=== PATIENT | female | born 1965 | race Caucasian/White ===

== ENCOUNTER → 2021-06-24 | Outpatient (CLI) | payer OTHER ==
--- NOTE | 2021-06-24 14:14 | CT ---
EXAMINATION TYPE: CT abdomen w con DATE OF EXAM: 06/24/2021 COMPARISON: None available HISTORY: Liver disease, lesions. CT DLP: 1191 mGycm Automated exposure control for dose reduction was used. TECHNIQUE: Helical acquisition of images was performed from the lung bases through the top of iliac crest to include entire abdomen. CONTRAST: Performed with Oral Contrast and with IV Contrast, patient injected with 100 mL of Isovue M300. FINDINGS: LUNG BASES: No significant abnormality is appreciated. LIVER/GB: Scattered hepatic cysts, at least 7, measuring up to 3.4 cm in the right hepatic dome. No o bvious suspicious feature or definite enhancement. Diffuse hypodense hepatic parenchyma highly sugges tive of the moderate to severe hepatic steatosis. No other definite hepatic focal lesion with the maynard itation of the hepatic steatosis. Patent portal vein and hepatic veins. Previous cholecystectomy. PANCREAS: 4 mm hypodensity seen in the pancreatic head which could represent a tiny cyst, too small t o characterize, otherwise unremarkable pancreas. SPLEEN: No significant abnormality is seen. ADRENALS: No significant abnormality is seen. KIDNEYS: Slightly smaller right kidney with irregular outline. Tiny cyst is seen at the lower pole of the left kidney. Unremarkable kidneys otherwise. BOWEL: Small sliding hiatal hernia, otherwise unremarkable stomach, duodenum and visualized small zena wel. Moderate fecal loading of the visualized portion of the colon. Slight wall thickening of the mid portion of the ascending colon, please correlate with coloscopy results. LYMPH NODES: No abdominal lymphadenopathy. OSSEOUS STRUCTURES: Degenerative changes of the lower thoracic and lower lumbar spine. FREE AIR: No free air is visualized. OTHER: Scattered arterial atherosclerotic calcifications. No abdominal ascites. IMPRESSION: Markedly hypodense hepatic parenchyma highly suggestive of moderate to severe severe hepatic steatosi s, please correlate with liver function tests. Scattered hepatic cysts as described above. No other d efinite liver lesion identified with the limitation of the hepatic steatosis. Please note that hepatic fatty infiltration reduces the sensitivity of CT scan for proper characteriz ation of hepatic focal lesions. Other incidental findings as described above.
== END | disposition home or self-care (01) ==
LOC: RADCTMAIN 12:51
PROVIDERS: ATTEND Obstetrics & Gynecology
DX: K76.89 Other specified diseases of liver (principal)
CPT/HCPCS: 74160; Q9967 ×2

== ENCOUNTER 2023-09-25 17:32 | Inpatient (IN) | payer OTHER ==
[2023-09-25] MEDS: HEPARIN SOD,PORK IN 0.45% NACL 25,000 UNIT in 0.45% NACL 1 250ML.BAG IV SCH (18:12)
[2023-09-25 18:14] LABS: Basophils # (A) 0.2 k/uL (0-0.2); Basophils % (A) 2 %; Eosinophils # (A) 0.3 k/uL (0-0.7); Eosinophils % (A) 3 %; HCT 43.2 % (34.0-46.0); HGB 14.4 gm/dL (11.4-16.0); Lymphocytes # (A) 4.5 k/uL (1.0-4.8); Lymphocytes % (A) 45 %; MCH 31.5 pg (25.0-35.0); MCHC 33.3 g/dL (31.0-37.0); MCV 94.5 fL (80.0-100.0); Mean Platelet Volume 7.4; Monocytes # (A) 0.5 k/uL (0-1.0); Monocytes % (A) 5 %; Neutrophils # (A) 4.3 k/uL (1.3-7.7); Neutrophils % (A) 44 %; Platelet Count 220 k/uL (150-450); RBC 4.56 m/uL (3.80-5.40); RDW 13.7 % (11.5-15.5); WBC 9.9 k/uL (3.8-10.6)
--- NOTE | 2023-09-25 18:17 | ED ---
General Adult HPI - General Chief complaint: Chest Pain Stated complaint: Chest Pain Time Seen by Provider: 09/25/23 17:37 Source: patient, EMS, RN notes reviewed, old records reviewed Mode of arrival: EMS Limitations: no limitations - History of Present Illness Initial comments: Patient is a 57-year-old female who presents emergency department as a transfer from [facility] as a non-STEMI. Patient is a history of hypertension, COPD, kidney stones, who scented to the emergency department at the other facility complaining of chest pain. Had an episode of chest heaviness last night prior to going to bed and awoke with continued chest pain this morning. States that the end of her developed into worsening left-sided chest pressure and had some radiation to the left shoulder as well as left jaw at that time. Patient presented for further evaluation. States she felt a little nauseous with that as well. No sweating. No shortness of breath. Currently is chest pain-free at this time but was found to be a non-STEMI at the outside facility with elevated troponin and no EKG changes. Remainder the workup unremarkable except for some hypertension at the outside facility which was treated with clonidine as well as anxiety which was treated with Ativan. Patient states the Ativan seemed to help the most with her chest pain. Presents for further evaluation at this time. - Related Data Home Medications Medication Instructions Recorded Confirmed Cholecalciferol [Vitamin D3 (25 25 mcg PO DAILY 09/25/23 09/25/23 Mcg = 1000 Iu)] Fluticasone Nasal [place] [Flonase 1 spray EA NOSTRIL DAILY 09/25/23 09/25/23 Nasal [place]] Gabapentin [Neurontin] 400 mg PO TID 09/25/23 09/25/23 Ketoconazole 2% Cream [Nizoral 2%] 1 applic TOPICAL DAILY 09/25/23 09/25/23 Ketoconazole 2% Shampoo [Nizoral] 1 applic TOPICAL Q3D 09/25/23 09/25/23 Lidex 0.05% Solution 1 applic TOPICAL BID 09/25/23 09/25/23 Omeprazole 20 mg PO DAILY 09/25/23 09/25/23 Pregabalin [Lyrica] 50 mg PO HS 09/25/23 09/25/23 Propranolol [Inderal] 20 mg PO TID 09/25/23 09/25/23 allopurinoL [Zyloprim] 300 mg PO DAILY 09/25/23 09/25/23 hydrOXYzine pamoate [Vistaril] 50 mg PO TID 09/25/23 09/25/23 Allergies Allergy/AdvReac Type Severity Reaction Status Date / Time tramadol AdvReac Nausea & Verified 09/25/23 18:18 Vomiting Review of Systems ROS Statement: Those systems with pertinent positive or pertinent negative responses have been documented in the HPI. Review of Systems: CONST: Denies fever EYES: Denies blurry vision ENT: Denies nasal congestion C/V: Denies Chest pain RESP: Denies shortness of breath GI: Denies abdominal pain : Denies dysuria SKIN: Denies rash. MSK: Denies joint pain. NEURO: Denies headache ROS Other: All systems not noted in ROS Statement are negative. General Exam - General Exam Comments Initial Comments: General: Appears in no acute distress. HEAD: Normal with no signs of head trauma. EYES: PERRLA, EOMI, conjunctiva normal, no discharge. ENT: Hearing grossly intact, normal oropharynx. RESPIRATORY: Clear breath sounds bilaterally. No wheezes, rales, or rhonchi. C/V: Regular rate and rhythm. S1 and S2 auscultated, no edema, peripheral pulses 2+ and intact throughout ABD: Abd is soft, nontender, nondistended EXT: Normal range of motion, no obvious deformity SKIN: No rashes or lesions observed on exposed skin. NEURO: Alert and oriented x 4. Limitations: no limitations Course Vital Signs 09/25/23 09/25/23 09/25/23 17:41 19:30 21:00 Temperature Pulse Rate 72 78 74 Respiratory 18 18 18 Rate Blood Pressure 128/88 134/79 134/94 O2 Sat by Pulse 94 L 96 97 Oximetry 09/25/23 21:52 Temperature 97.8 F Pulse Rate 71 Respiratory 16 Rate Blood Pressure 125/72 O2 Sat by Pulse 92 L Oximetry Medical Decision Making - Medical Decision Making Was pt. sent in by a medical professional or institution (, PA, BLANKET [employer]DER, urgent care, hospital, or fci...) When possible be specific @ -Transferred from [facility] for evaluation by cardiology for a non-STEMI Did you speak to anyone other than the patient for history (EMS, parent, family, police, friend...)? What history was obtained from this source @ -No Did you review nursing and triage notes (agree or disagree)? Why? @ -I reviewed and agree with nursing and triage notes Were old charts reviewed (outside hosp., previous admission, EMS record, old EKG, old radiological studies, urgent care reports/EKG's, fci records)? Report findings @ -Old charts reviewed from [facility] which is the transferring facility including EKG which revealed no evidence of ischemic changes as well as laboratory studies which showed the mildly elevated High-sensitivity troponin. CT angiogram at the outside facility also found to be showing no evidence of acute PE or other cardiopulmonary process. Differential Diagnosis (chest pain, altered mental status, abdominal pain women, abdominal pain men, vaginal bleeding, weakness, fever, dyspnea, syncope, headache, dizziness, GI bleed, back pain, seizure, CVA, palpatations, mental health, musculoskeletal)? @ -Differential Chest Pain: Stable Angina, Unstable Angina, STEMI, NSTEMI Aortic Dissection, Pneumothorax, Musculoskeletal, Esophageal Spasm GERD, Cholecystitis, Pancreatitis, Zoster, this is not meant to be an all-inclusive list. EKG interpreted by me (3pts min.). @ -As above X-rays interpreted by me (1pt min.). @ -None done CT interpreted by me (1pt min.). @ -None done U/S interpreted by me (1pt. min.). @ -None done What testing was considered but not performed or refused? (CT, X-rays, U/S, labs)? Why? @ -Considered imaging however patient already received imaging at the outside facility including CT PE which was unremarkable. What meds were considered but not given or refused? Why? @ -Considered aspirin however patient already has received a total of 324 milligrams of aspirin today. Did you discuss the management of the patient with other professionals (professionals i.e. , PA, BLANKET F[employer]DER, lab, RT, psych nurse, addiction social worker, college coach, teacher, transportation security officer, rn case manager hospice)? Give summary @ -Discussed with the admitting physician, Dr. Merino who accepted the admission. Was smoking cessation discussed for >3mins.? @ -No Was critical care preformed (if so, how long)? @ -No Were there social determinants of health that impacted care today? How? (Homelessness, low income, unemployed, alcoholism, drug addiction, transportation, low edu. Level, literacy, decrease access to med. care, intermediate, rehab)? @ -No Was there de-escalation of care discussed even if they declined (Discuss DNR or withdrawal of care, Hospice)? DNR status @ -No What co-morbidities impacted this encounter? (DM, HTN, Smoking, COPD, CAD, Cancer, CVA, ARF, Chemo, Hep., AIDS, mental health diagnosis, sleep apnea, morbid obesity)? @ -Tobacco use, hypertension Was patient admitted / discharged? Hospital course, mention meds given and route, prescriptions, significant lab abnormalities, going to OR and other pertinent info. @ -Patient presents with typical sounding chest pain that is since resolved but found to have a non-STEMI based on workup at an outside emergency department at [place]. We will repeat labs. We will continue heparin drip as well as IV fluids. Echo will be ordered. Repeat EKG was obtained and showed no evidence of acute ST segment elevation. Patient does have some very mild depressions in V3 and V4. Patient is currently pain-free. She states the Ativan seemed to help with her discomfort earlier the most I did reorder this for her as well as a nicotine patch. She will be admitted to the hospital as a non-STEMI for cardiology evaluation. She was in agreement this plan. Vital signs within acceptable limits. I spoke with Dr. Merino of [facility] who accepted the admission. Troponin returned elevated at 0.155. Remainder the labs unremarkable. We are continuing heparin therapy. EKG showed no signs of acute ischemia. Patient expressed understanding. She remains asymptomatic at time of admission. Undiagnosed new problem with uncertain prognosis? @ -No Drug Therapy requiring intensive monitoring for toxicity (Heparin, Nitro, Insulin, Cardizem)? @ -Heparin Were any procedures done? @ -No Diagnosis/symptom? @ -NSTEMI Acute, or Chronic, or Acute on Chronic? @ -Acute Uncomplicated (without systemic symptoms) or Complicated (systemic symptoms)? @ -Complicated Side effects of treatment? @ -No Exacerbation, Progression, or Severe Exacerbation? @ -No Poses a threat to life or bodily function? How? (Chest pain, [place], MA, pneumonia, PE, COPD, DKA, ARF, appy, cholecystitis, CVA, Diverticulitis, Homicidal, Suicidal, threat to staff... and all critical care pts) @ -Yes - Lab Data Result diagrams: 09/25/23 17:59 09/25/23 17:59 Lab Results 09/25/23 09/25/23 09/25/23 Range/Units 17:59 17:59 17:59 WBC 9.9 (3.8-10.6) k/uL RBC 4.56 (3.80-5.40) m/uL Hgb 14.4 (11.4-16.0) gm/dL Hct 43.2 (34.0-46.0) % MCV 94.5 (80.0-100.0) fL MCH 31.5 (25.0-35.0) pg MCHC 33.3 (31.0-37.0) g/dL RDW 13.7 (11.5-15.5) % Plt Count 220 (150-450) k/uL MPV 7.4 Neutrophils % 44 % Lymphocytes % 45 % Monocytes % 5 % Eosinophils % 3 % Basophils % 2 % Neutrophils # 4.3 (1.3-7.7) k/uL Lymphocytes # 4.5 (1.0-4.8) k/uL Monocytes # 0.5 (0-1.0) k/uL Eosinophils # 0.3 (0-0.7) k/uL Basophils # 0.2 (0-0.2) k/uL PT 10.6 (10.0-12.5) sec INR 1.0 (<1.2) APTT 69.5 H (22.0-30.0) sec Sodium 139 (137-145) mmol/L Potassium 3.9 (3.5-5.1) mmol/L Chloride 108 H (98-107) mmol/L Carbon Dioxide 25 (22-30) mmol/L Anion Gap 6 mmol/L BUN 14 (7-17) mg/dL Creatinine 0.71 (0.52-1.04) mg/dL Est GFR (CKD-EPI)AfAm >90 (>60 ml/min/1.73 sqM) Est GFR (CKD-EPI)NonAf >90 (>60 ml/min/1.73 sqM) Glucose 102 H (74-99) mg/dL Calcium 8.8 (8.4-10.2) mg/dL Magnesium 1.7 (1.6-2.3) mg/dL Total Bilirubin 0.5 (0.2-1.3) mg/dL AST 20 (14-36) U/L ALT 15 (4-34) U/L Alkaline Phosphatase 71 (38-126) U/L Troponin I (0.000-0.034) ng/mL Total Protein 6.4 (6.3-8.2) g/dL Albumin 3.9 (3.5-5.0) g/dL 09/25/23 Range/Units 17:59 WBC (3.8-10.6) k/uL RBC (3.80-5.40) m/uL Hgb (11.4-16.0) gm/dL Hct (34.0-46.0) % MCV (80.0-100.0) fL MCH (25.0-35.0) pg MCHC (31.0-37.0) g/dL RDW (11.5-15.5) % Plt Count (150-450) k/uL MPV Neutrophils % % Lymphocytes % % Monocytes % % Eosinophils % % Basophils % % Neutrophils # (1.3-7.7) k/uL Lymphocytes # (1.0-4.8) k/uL Monocytes # (0-1.0) k/uL Eosinophils # (0-0.7) k/uL Basophils # (0-0.2) k/uL PT (10.0-12.5) sec INR (<1.2) APTT (22.0-30.0) sec Sodium (137-145) mmol/L Potassium (3.5-5.1) mmol/L Chloride (98-107) mmol/L Carbon Dioxide (22-30) mmol/L Anion Gap mmol/L BUN (7-17) mg/dL Creatinine (0.52-1.04) mg/dL Est GFR (CKD-EPI)AfAm (>60 ml/min/1.73 sqM) Est GFR (CKD-EPI)NonAf (>60 ml/min/1.73 sqM) Glucose (74-99) mg/dL Calcium (8.4-10.2) mg/dL Magnesium (1.6-2.3) mg/dL Total Bilirubin (0.2-1.3) mg/dL AST (14-36) U/L ALT (4-34) U/L Alkaline Phosphatase (38-126) U/L Troponin I 0.155 H* (0.000-0.034) ng/mL Total Protein (6.3-8.2) g/dL Albumin (3.5-5.0) g/dL - EKG Data -: EKG Interpreted by Me EKG Comments: 12-lead Electrocardiogram Interpretation Note EKG was reviewed and interpreted by myself. 12-lead ECG performed at 1751 is interpreted by me as revealing normal sinus rhythm at a rate of 70 beats per minute. [place] is normal. Parables 157 ms, QRS duration is 91 ms, QTc is [address] segment depression in V3 and V4 less than 1 box. No evidence of ST segment elevation. No reciprocal changes.. R wave progression across the precordium was satisfactory.. Disposition Clinical Impression: NSTEMI (non-ST elevated myocardial infarction) Disposition: ADMITTED IP TO THIS [facility] Condition: Stable Time of Disposition: 18:22
[2023-09-25] MEDS ORDERED: NALOXONE 0.4 MG/ML 1 ML VIAL IV PRN (18:19)
[2023-09-25] MEDS ORDERED: ACETAMINOPHEN TAB 325 MG TAB PO PRN (18:19)
[2023-09-25] MEDS ORDERED: ONDANSETRON 4 MG/2 ML VIAL IVP PRN (18:19)
[2023-09-25] MEDS: SODIUM CHLORIDE 0.9% 1,000 ML IV STA (18:19)
[2023-09-25 18:23] LABS: ALT 15 U/L (4-34); AST 20 U/L (14-36); African American GFR (CKD) >90 (>60 ml/min/1.73 sqM); Albumin 3.9 g/dL (3.5-5.0); Alkaline Phosphatase 71 U/L (38-126); Anion Gap 6 mmol/L; Blood Urea Nitrogen 14 mg/dL (7-17); Calcium 8.8 mg/dL (8.4-10.2); Carbon Dioxide 25 mmol/L (22-30); Chloride 108 mmol/L (98-107); Glucose 102 mg/dL (74-99); Magnesium 1.7 mg/dL (1.6-2.3); Non-African American GFR(CKD) >90 (>60 ml/min/1.73 sqM); Potassium 3.9 mmol/L (3.5-5.1); Sodium 139 mmol/L (137-145); Total Bilirubin 0.5 mg/dL (0.2-1.3); Total Protein 6.4 g/dL (6.3-8.2)
[2023-09-25] MEDS: NICOTINE 7MG/24HR PATCH TRANSDERM STA (18:34)
[2023-09-25] MEDS: ACETAMINOPHEN TAB 500 MG TAB PO STA (18:34)
[2023-09-25] MEDS: MORPHINE SULFATE 2 MG/ML SYRINGE IVP STA (18:34)
[2023-09-25 18:55] LABS: Partial Thromboplastin Time 69.5 sec (22.0-30.0); Prothrombin Time 10.6 sec (10.0-12.5)
[2023-09-26] MEDS ORDERED: NITROGLYCERIN SL TABS 0.4 MG TAB SUBLINGUAL PRN ×2 (00:02→13:28)
[2023-09-26] MEDS ORDERED: IPRATROPIUM-ALBUTEROL 3 ML NEB INHALATION PRN (00:10)
--- NOTE | 2023-09-26 00:10 | P.HPIM ---
History of Present Illness H&P Date: 09/25/23 Chief Complaint: Chest pain 57-year-old female with hypertension, COPD Patient coming in for evaluation of chest pain that woke her up from nap she denies any cardiac history she describes the pain as left-sided chest pain radiating across her chest felt like pressure with some areas of stabbing rating the pain was associated with some difficulty breathing and sweating palpitations and dizziness denies any nausea or vomiting. She denies any history of exertional related dyspnea or chest pain denies any cardiac history or cardiac workup in the past. She does admit to smoking and reports having some mild case of COPD. She also reports a recent history of upper respiratory viral illness about 3 weeks ago. Due to the recurrent episodes of chest pain that she exper ienced today she decided to come into the hospital for evaluation she took some aspirin at home which did not help with the pain. Patient denies any recent travel hospital stay denies any history of blood clots or active cancer. At this time she still reports some chest pain and asking for some medications to help with that She admits to tobacco smoking denies any illicit drugs or heavy alcohol Patient denies any fevers chills nausea vomiting coughing denies any wheezing denies any leg edema abdominal pain changes in bowel or urinary habits review of systems Pertinent positives as noted in HPI. All other systems were reviewed and are negative on exam Constitutional: No acute distress, conversant, pleasant Eyes: Anicteric sclerae, moist conjunctiva, Pupils equal round reactive to light ENMT: NC/AT Oropharynx clear, no erythema, or exudates Neck: Supple, no masses, or JVD No carotid bruits No thyromegaly Lungs: Clear to auscultation Clear to percussion Normal respiratory effort, no accessory muscle use Cardiovascular: Heart regular in rate and rhythm, No murmurs, gallops, or rubs No peripheral edema Abdominal: Soft Nontender, no guarding, rebound or rigidity Abdomen moving with respiration Normoactive bowel sounds Extremities: No digital cyanosis No clubbing Pedal pulses intact and symmetrical Radial pulses intact and symmetrical No calf tenderness Psychiatric: Alert and oriented to person, place and time Appropriate affect fair judgement Neuro Muscles Strength 5/5 in all 4 extremities Sensation to light touch grossly present throughout Cranial nerves II-XII grossly intact Medications and Allergies Home Medications Medication Instructions Recorded Confirmed Type Cholecalciferol [Vitamin D3 (25 25 mcg PO DAILY 09/25/23 09/25/23 History Mcg = 1000 Iu)] Fluticasone Nasal [place] [Flonase 1 spray EA NOSTRIL DAILY 09/25/23 09/25/23 History Nasal [place]] Gabapentin [Neurontin] 400 mg PO TID 09/25/23 09/25/23 History Ketoconazole 2% Cream [Nizoral 2%] 1 applic TOPICAL DAILY 09/25/23 09/25/23 History Ketoconazole 2% Shampoo [Nizoral] 1 applic TOPICAL Q3D 09/25/23 09/25/23 History Lidex 0.05% Solution 1 applic TOPICAL BID 09/25/23 09/25/23 History Omeprazole 20 mg PO DAILY 09/25/23 09/25/23 History Pregabalin [Lyrica] 50 mg PO HS 09/25/23 09/25/23 History Propranolol [Inderal] 20 mg PO TID 09/25/23 09/25/23 History allopurinoL [Zyloprim] 300 mg PO DAILY 09/25/23 09/25/23 History hydrOXYzine pamoate [Vistaril] 50 mg PO TID 09/25/23 09/25/23 History Allergies Allergy/AdvReac Type Severity Reaction Status Date / Time tramadol AdvReac Nausea & Verified 09/25/23 18:18 Vomiting Physical Exam Vitals: Vital Signs Temp Pulse Resp BP Pulse Ox 09/25/23 21:52 97.8 F 71 16 125/72 92 L 09/25/23 21:00 74 18 134/94 97 09/25/23 19:30 78 18 134/79 96 09/25/23 17:41 72 18 128/88 94 L Intake and Output 09/25/23 09/25/23 09/26/23 14:59 22:59 06:59 Other: Weight 77.111 kg Results CBC & Chem 7: 09/25/23 17:59 09/25/23 17:59 Labs: Abnormal Lab Results - Last 24 Hours (Table) 09/25/23 09/25/23 09/25/23 Range/Units 17:59 17:59 17:59 APTT 69.5 H (22.0-30.0) sec Chloride 108 H (98-107) mmol/L Glucose 102 H (74-99) mg/dL Troponin I 0.155 H* (0.000-0.034) ng/mL 09/25/23 Range/Units 20:55 APTT (22.0-30.0) sec Chloride (98-107) mmol/L Glucose (74-99) mg/dL Troponin I 0.199 H* (0.000-0.034) ng/mL Assessment and Plan Assessment: 57-year-old female with hypertension COPD coming in for sudden onset chest pain I discussed case with ED doctor and accepted the admission for NSTEMI with anticipated length of stay more than 2 midnights NSTEMI Troponin elevated continue to trend 0.15 --> 0.[address] changes Nitro as needed for chest pain Heparin drip per ACS protocol Cardiology consult Morphine 2 mg as needed for pain Aspirin 81 mg daily p.o. and atorvastatin 40 mg p.o. daily Check lipid panel Check echocardiogram IV fluid hydration normal saline 75 cc/h EKG no acute ST changes Anxiety Continue with propranolol 20 mg 3 times daily History of mild COPD DuoNeb as needed as needed Patient encouraged to quit smoking Blood work overall unremarkable showing white count of 9.9 hemoglobin 14.4 Sodium 139 potassium 3.9 BUN 14 creatinine 0.7 Full code DVT prophylaxis on heparin drip per ACS protocol
[2023-09-26] MEDS: MORPHINE SULFATE 2 MG/ML SYRINGE IVP PRN (01:08)
[2023-09-26] MEDS: LORazepam 1 MG TAB PO PRN (01:08)
[2023-09-26] MEDS: HEPARIN SODIUM 1,000 UN/ML (10ML VL) IV PRN (05:01)
[2023-09-26] MEDS: PROPRANOLOL 20 MG TAB PO SCH (08:12)
[2023-09-26] MEDS: PANTOPRAZOLE 40 MG TABLET PO SCH (08:13)
[2023-09-26] MEDS: ATORVASTATIN 40 MG TAB PO SCH (08:13)
[2023-09-26] MEDS: ASPIRIN 81 MG PO SCH (08:13)
[2023-09-26] MEDS: allopurinoL 300 MG TAB PO SCH (08:13)
[2023-09-26] MEDS: FLUTICASONE 50MCG/SPRAY NASAL 16GM EA NOSTRIL SCH (08:13)
[2023-09-26] MEDS: GABAPENTIN 400 MG CAP PO SCH (08:13)
[2023-09-26 10:27] LABS: Basophils # (A) 0.1 k/uL (0-0.2); Basophils % (A) 1 %; Eosinophils # (A) 0.2 k/uL (0-0.7); Eosinophils % (A) 2 %; HCT 43.6 % (34.0-46.0); HGB 14.3 gm/dL (11.4-16.0); Lymphocytes # (A) 3.9 k/uL (1.0-4.8); Lymphocytes % (A) 48 %; MCH 31.2 pg (25.0-35.0); MCHC 32.8 g/dL (31.0-37.0); MCV 95.3 fL (80.0-100.0); Mean Platelet Volume 8.1; Monocytes # (A) 0.4 k/uL (0-1.0); Monocytes % (A) 4 %; Neutrophils # (A) 3.5 k/uL (1.3-7.7); Neutrophils % (A) 42 %; Platelet Count 196 k/uL (150-450); RBC 4.58 m/uL (3.80-5.40); RDW 14.1 % (11.5-15.5); WBC 8.2 k/uL (3.8-10.6)
--- NOTE | 2023-09-26 10:38 | P.CRDCN ---
History of Present Illness Consult date: 09/26/23 Chief complaint: chest pain History of present illness: The patient is a pleasant 57-year-old female patient with a past medical history significant for diabetes and hypertension and dyslipidemia and overweight and smoking. She presented to the hospital complaining of chest discomfort. She was doing some yard work at home and subsequently she started experiencing discomfort in the middle of the chest as a pressure on the chest with radiation to her neck. No dizziness or lightheadedness and no presyncope or syncope and no sweating. She decided to come to the hospital where she initially presented to [facility] and underwent a blood work including troponin came in to be abnormal and subsequently she was transferred to [facility]. The troponin is consistent with acute coronary syndrome but the EKG showed sinus m echanism with nonspecific ST or T wave abnormalities. No history of coronary artery disease or congestive heart failure or cardiac arrhythmia and never seen a brasswind instrument repairer before. The rest of the blood work came in to be overall unremarkable. Currently she is chest pain-free but she is on heparin IV and she is on aspirin and beta-ana as well and statin. The examination is remarkable for stable vital signs with regular rate and rhythm and clear breathing sounds bilaterally and no edema was noted in the lower extremities Assessment Acute non-ST ovation myocardial infarction Multiple comorbid conditions including smoking and diabetes and hypertension and dyslipidemia Significant family history of cardiovascular disease Plan Continue the current medical regimen Proceed with coronary angiogram Obtain an echocardiogram with Doppler Nicotine patches Smoking cessation was discussed with her Medications and Allergies Home Medications Medication Instructions Recorded Confirmed Type Cholecalciferol [Vitamin D3 (25 25 mcg PO DAILY 09/25/23 09/25/23 History Mcg = 1000 Iu)] Fluticasone Nasal [place] [Flonase 1 spray EA NOSTRIL DAILY 09/25/23 09/25/23 History Nasal [place]] Gabapentin [Neurontin] 400 mg PO TID 09/25/23 09/25/23 History Ketoconazole 2% Cream [Nizoral 2%] 1 applic TOPICAL DAILY 09/25/23 09/25/23 History Ketoconazole 2% Shampoo [Nizoral] 1 applic TOPICAL Q3D 09/25/23 09/25/23 History Lidex 0.05% Solution 1 applic TOPICAL BID 09/25/23 09/25/23 History Omeprazole 20 mg PO DAILY 09/25/23 09/25/23 History Pregabalin [Lyrica] 50 mg PO HS 09/25/23 09/25/23 History Propranolol [Inderal] 20 mg PO TID 09/25/23 09/25/23 History allopurinoL [Zyloprim] 300 mg PO DAILY 09/25/23 09/25/23 History hydrOXYzine pamoate [Vistaril] 50 mg PO TID 09/25/23 09/25/23 History Allergies Allergy/AdvReac Type Severity Reaction Status Date / Time tramadol AdvReac Nausea & Verified 09/25/23 18:18 Vomiting Physical Exam Vitals: Vital Signs Temp Pulse Pulse Resp BP BP Pulse Ox 09/26/23 08:00 97.8 F 81 16 123/76 91 L 09/26/23 06:23 84 18 143/90 96 09/26/23 01:13 71 18 122/85 95 09/25/23 21:52 97.8 F 71 16 125/72 92 L 09/25/23 21:00 74 18 134/94 97 09/25/23 19:30 78 18 134/79 96 09/25/23 17:41 72 18 128/88 94 L Intake and Output 09/25/23 09/26/23 09/26/23 22:59 06:59 14:59 Intake Total 98.236 64.582 Balance 98.236 64.582 Intake: Intake, IV Titration 98.236 64.582 Amount Heparin Sod,Pork in 0.45% 98.236 64.582 NaCl 25,000 unit In 0.45 % NaCl 1 250ml.bag @ 12 UNITS/KG/HR 9.253 mls/hr IV .Q24H [facility] Rx#: [id number] Other: Weight 77.111 kg Results 09/26/23 09:57 09/25/23 17:59 Cardiac Enzymes 09/25/23 09/25/23 09/25/23 Range/Units 17:59 17:59 20:55 AST 20 (14-36) U/L Troponin I 0.155 H* 0.199 H* (0.000-0.034) ng/mL 09/26/23 Range/Units 01:30 AST (14-36) U/L Troponin I 0.205 H* (0.000-0.034) ng/mL Coagulation 0609/26/23 09/26/23 Range/Units 17:59 01:30 09:56 PT 10.6 (10.0-12.5) sec APTT 69.5 H 32.2 H 79.6 H (22.0-30.0) sec CBC 09/25/23 09/26/23 Range/Units 17:59 09:57 WBC 9.9 8.2 (3.8-10.6) k/uL RBC 4.56 4.58 (3.80-5.40) m/uL Hgb 14.4 14.3 (11.4-16.0) gm/dL Hct 43.2 43.6 (34.0-46.0) % Plt Count 220 196 (150-450) k/uL Comprehensive Metabolic Panel 09/25/23 Range/Units 17:59 Sodium 139 (137-145) mmol/L Potassium 3.9 (3.5-5.1) mmol/L Chloride 108 H (98-107) mmol/L Carbon Dioxide 25 (22-30) mmol/L BUN 14 (7-17) mg/dL Creatinine 0.71 (0.52-1.04) mg/dL Glucose 102 H (74-99) mg/dL Calcium 8.8 (8.4-10.2) mg/dL AST 20 (14-36) U/L ALT 15 (4-34) U/L Alkaline Phosphatase 71 (38-126) U/L Total Protein 6.4 (6.3-8.2) g/dL Albumin 3.9 (3.5-5.0) g/dL Current Medications Generic Name Dose Route Start Last Admin Trade Name Freq PRN Reason Stop Dose Admin Acetaminophen 650 mg 09/25/23 18:19 Acetaminophen Tab 325 Mg Tab PO Q6HR PRN Mild Pain or Fever > 100.5 Albuterol/Ipratropium 3 ml 09/26/23 00:10 Ipratropium-Albuterol 3 Ml Neb INHALATION RT-QID PRN Shortness Of Breath Or Wheezing Allopurinol 300 mg 09/26/23 09:00 09/26/23 08:13 Allopurinol 300 Mg Tab PO 300 mg DAILY CHRIS Administration Aspirin 81 mg 09/26/23 09:00 09/26/23 08:13 Aspirin 81 Mg PO 81 mg DAILY CHRIS Administration Atorvastatin Calcium 40 mg 09/26/23 09:00 09/26/23 08:13 Atorvastatin 40 Mg Tab PO 40 mg DAILY CHRIS Administration Fluticasone Propionate 1 spray 09/26/23 09:00 09/26/23 08:13 Fluticasone 50mcg/[place] Nasal 16gm EA NOSTRIL 1 spray DAILY CHRIS Administration Gabapentin 400 mg 09/26/23 09:00 09/26/23 08:13 Gabapentin 400 Mg Cap PO 400 mg TID CHRIS Administration Heparin Sodium (Porcine) 0 unit 09/26/23 04:59 09/26/23 05:01 Heparin Sodium 1,000 Un/Ml (10ml Vl) IV 3,850 unit PER PROTOCOL PRN Administration Low PTT Protocol Heparin Sodium/Sodium Chloride 250 mls @ 9.253 mls/hr 09/25/23 18:00 09/26/23 10:24 25,000 unit/ Sodium Chloride IV 13 units/kg/hr .Q24H CHRIS 10.024 mls/hr Titration Protocol 12 UNITS/KG/HR Lorazepam 1 mg 09/25/23 17:53 09/26/23 08:17 Lorazepam 1 Mg Tab PO 1 mg Q8HR PRN Administration Anxiety Morphine Sulfate 2 mg 09/26/23 00:02 09/26/23 10:26 Morphine Sulfate 2 Mg/Ml Syringe IVP 2 mg Q4HR PRN Administration Pain/Discomfort Naloxone HCl 0.2 mg 09/25/23 18:19 Naloxone 0.4 Mg/Ml 1 Ml Vial IV Q2M PRN Opioid Reversal Nitroglycerin 0.4 mg 09/26/23 00:02 Nitroglycerin Sl Tabs 0.4 Mg Tab SUBLINGUAL Q5M PRN Chest Pain Ondansetron HCl 4 mg 09/25/23 18:19 Ondansetron 4 Mg/2 Ml Vial IVP Q8HR PRN Nausea And Vomiting Pantoprazole Sodium 40 mg 09/26/23 07:30 09/26/23 08:13 Pantoprazole 40 Mg Tablet PO 40 mg [id number] CHRIS Administration Pregabalin 50 mg 09/26/23 21:00 Pregabalin 50 Mg Cap PO HS CHRIS Propranolol HCl 20 mg 09/26/23 09:00 09/26/23 08:12 Propranolol 20 Mg Tab PO 20 mg TID CHRIS Administration Intake and Output 09/25/23 09/26/23 09/26/23 22:59 06:59 14:59 Intake Total 98.236 64.582 Balance 98.236 64.582 Intake: Intake, IV Titration 98.236 64.582 Amount Heparin Sod,Pork in 0.45% 98.236 64.582 NaCl 25,000 unit In 0.45 % NaCl 1 250ml.bag @ 12 UNITS/KG/HR 9.253 mls/hr IV .Q24H [facility] Rx#: [id number] Other: Weight 77.111 kg 09/26/23 09:57 09/25/23 17:59
[2023-09-26 11:50] LABS: ALT 15 U/L (4-34); AST 24 U/L (14-36); African American GFR (CKD) >90 (>60 ml/min/1.73 sqM); Albumin 3.7 g/dL (3.5-5.0); Alkaline Phosphatase 81 U/L (38-126); Anion Gap 5 mmol/L; Blood Urea Nitrogen 13 mg/dL (7-17); Calcium 8.9 mg/dL (8.4-10.2); Carbon Dioxide 20 mmol/L (22-30); Chloride 114 mmol/L (98-107); Glucose 136 mg/dL (74-99); Non-African American GFR(CKD) >90 (>60 ml/min/1.73 sqM); Potassium 4.2 mmol/L (3.5-5.1); Sodium 139 mmol/L (137-145); Total Bilirubin 0.4 mg/dL (0.2-1.3); Total Protein 5.9 g/dL (6.3-8.2)
[2023-09-26] MEDS ORDERED: LIDOCAINE 1% INJ 10MG/ML (20 ML MDV) ONE (11:58)
[2023-09-26] MEDS ORDERED: VERAPAMIL 2.5 MG/ML 2 ML AMP ONE (11:59)
[2023-09-26] MEDS: IV FLUID CONTINUATION 950 ML IV ONE (12:13)
--- NOTE | 2023-09-26 12:13 | P.PN ---
Subjective Progress Note Date: 09/26/23 Hospital Course: 57-year-old female with hypertension, COPD presenting from outside hospital af ter developing chest pain. Had elevated troponin. Started on heparin drip. Was transferred for further care. EKG does not show any significant ST-T wave changes. Vital signs within normal limits. Laboratory workup shows unremarkable CBC, BMP shows creatinine 0.71, troponin 0.05. Cardiology co nsulted. Subjective: Seen and examined at bedside. No acute events overnight. Denies any chest pain. Pertinent positives and negatives as discussed above, a complete review of systems was performed and all other systems are negative. Vitals Signs Reviewed. General: Nontoxic, no distress, appears at stated age Derm: Warm, dry Head: Atraumatic, normocephalic, symmetric Eyes: EOMI, no lid lag, anicteric sclera Mouth: No lip lesion, mucus membranes moist Cardiovascular: S1S2 reg, no murmur Lungs: CTA bilateral, no rhonchi, no rales, no accessory muscle use Abdominal: Soft, nontender to palpation, no guarding, no appreciable organomegaly Ext: No gross muscle atrophy, no edema, no contractures Neuro: CN II-XI grossly intact, no focal neuro deficits Psych: Alert, oriented, appropriate affect Data Reviewed Today: Pertinent Labs: WBC 8.2, hemoglobin 14.3, APTT 79.6, bicarb 20, creatinine 0.66 Imaging: No new imaging Assessment and Plan: Acute NSTEMI -Continue heparin drip, monitor APTT, monitor for bleeding -Aspirin 81 mg, atorvastatin 40 mg -Cardiology consulted, pending recommendations -Morphine 2 mg as needed for pain, monitor for sedation -Lipid panel, echocardiogram pending -Continue telemetry Anxiety -Continue with propranolol 20 mg 3 times daily History of mild COPD -DuoNeb as needed as needed Nicotine dependence -Nicotine patch 7 mg daily -Patient encouraged to quit smoking Chronic: Gout Neuropathy GERD DVT ppx: Heparin drip Code status: Full code Anticipated discharge place: Pending clinical course Anticipated discharge time: Pending clinical course Objective - Vital Signs Vital signs: Vital Signs Temp 97.7 F 09/26/23 11:56 Pulse 73 09/26/23 11:56 Resp 15 09/26/23 11:56 BP 112/80 09/26/23 11:56 Pulse Ox 99 09/26/23 11:56 FiO2 Intake & Output 09/25/23 09/26/23 09/26/23 18:59 06:59 18:59 Intake Total 98.236 64.582 Balance 98.236 64.582 Weight 77.111 kg Intake: Intake, IV Titration 98.236 64.582 Amount Heparin Sod,Pork in 0.45% 98.236 64.582 NaCl 25,000 unit In 0.45 % NaCl 1 250ml.bag @ 12 UNITS/KG/HR 9.253 mls/hr IV .Q24H [facility] Rx#: [id number] - Labs CBC & Chem 7: 09/26/23 09:57 09/26/23 09:56 Labs: Abnormal Lab Results - Last 24 Hours (Table) 09/25/23 09/25/23 09/25/23 Range/Units 17:59 17:59 17:59 APTT 69.5 H (22.0-30.0) sec Chloride 108 H (98-107) mmol/L Carbon Dioxide (22-30) mmol/L Glucose 102 H (74-99) mg/dL Troponin I 0.155 H* (0.000-0.034) ng/mL Total Protein (6.3-8.2) g/dL 09/25/23 09/26/23 09/26/23 Range/Units 20:55 01:30 01:30 APTT 32.2 H (22.0-30.0) sec Chloride (98-107) mmol/L Carbon Dioxide (22-30) mmol/L Glucose (74-99) mg/dL Troponin I 0.199 H* 0.205 H* (0.000-0.034) ng/mL Total Protein (6.3-8.2) g/dL 09/26/23 09/26/23 Range/Units 09:56 09:56 APTT 79.6 H (22.0-30.0) sec Chloride 114 H (98-107) mmol/L Carbon Dioxide 20 L (22-30) mmol/L Glucose 136 H (74-99) mg/dL Troponin I (0.000-0.034) ng/mL Total Protein 5.9 L (6.3-8.2) g/dL
[2023-09-26] MEDS ORDERED: fentaNYL (PF) 50 MCG/ML 2 ML AMP ONE (12:23)
[2023-09-26] MEDS ORDERED: HEPARIN SODIUM 1,000 UN/ML (10ML VL) ONE (12:23)
[2023-09-26] MEDS: ASPIRIN 81 MG ONE (12:28)
[2023-09-26] MEDS: MIDAZOLAM 2 MG/2 ML VIAL IVP ONE (12:35)
[2023-09-26] MEDS: fentaNYL (PF) 50 MCG/1 ML VIAL IVP ONE (12:38)
[2023-09-26] MEDS: LIDOCAINE 1% INJ 10MG/ML (20 ML MDV) SQ ONE (12:43)
[2023-09-26] MEDS: VERAPAMIL SYRINGE (5 MG/10 ML) INTRAARTER ONE (12:45)
[2023-09-26] MEDS: TICAGRELOR 90 MG TAB ONE (12:58)
[2023-09-26] MEDS: NITROGLYCERIN 1000MCG/10ML SYRINGE INTRAARTER ONE (13:05)
[2023-09-26] MEDS ORDERED: niCARdipine 25 MG/10 ML VIAL ONE (13:08)
[2023-09-26] MEDS: niCARdipine Syringe (1,000 mcg/10 mL) INTRACORON ONE (13:14)
[2023-09-26] MEDS: IOPAMIDOL-370 100ML BTL INJ ONE (13:15)
[2023-09-26] MEDS ORDERED: MAG HYDROX/AL HYDROX/SIMETH 30 ML CUP PO PRN (13:28)
[2023-09-26] MEDS ORDERED: RX INFO: IV CONTRAST WAS GIVEN 1 EACH MISC MISCELLANE PRN (13:28)
[2023-09-26] MEDS ORDERED: ATROPINE SULFATE 0.1 MG/ML 10ML SYRINGE IV PRN (13:28)
[2023-09-26] MEDS ORDERED: ZOLPIDEM 5 MG TAB PO PRN (13:28)
[2023-09-26] MEDS: MORPHINE SULFATE 4 MG/ML SYRINGE ONE (13:32)
--- NOTE | 2023-09-26 13:36 | P.PCN ---
Date of Procedure: 09/26/23 Operative Findings: CARDIAC CATHETERIZATION AND PERCUTANEOUS CORONARY INTERVENTION PERFORMING PHYSICIAN: Juan Osborne MD, VI PROCEDURE PERFORMED: 1. Selective right and left coronary angiogram 2. Left heart catheterization 3. Successful stenting of distal RCA using 3.5 x 28 mm Xience SOHA with an ex cellent angiographic results with adjunctive use of IVUS 4. Ultrasound-guided access of the right radial artery INDICATION: Acute non-ST ovation myocardial infarction COMPLICATION: None APPROACH: Right radial artery LEVEL OF SEDATION: Moderate with the sedation time off 37 minutes PROCEDURE DESCRIPTION: After obtaining informed consent the patient was brought to the cardiac [employer]. The right radial artery was cannulated using micropuncture technique under ultrasound guidance and micropuncture wire passed easily then I placed a 6 Thai 11 cm sheath at the right radial artery. I gave the patient 2 mg of verapamil intra-arterial and heparin IV was given intermittently with continuous monitoring of the ACT. Subsequently I did selective right and left coronary angiogram using JR4 and JL 3.5 catheters. Left heart catheterization was performed using the JR4 catheter. After that I did intervene on the RCA. Anticoagulation continued using heparin. I did engage using JR4 guiding catheter. I did wired using a run-through wire. Intravascular ultrasound was performed and showed a diameter between 3.0 to 3.5 mm. Predilatation was performed using 2.5 mm balloon before I deployed 3.5 x 28 mm stent where the stent was positioned under fluoroscopy guidance and deployed under 14 anahi. Postdilatation was performed using 4 mm noncompliant balloon after imaging performed and showed that the proximal portion of the stent was not well expanded. An angiogram was performed and showed possible residual thrombus burden involving the distal part of the stent. I postdilated that area again using the 4 mm noncompliant balloon with final angiogram showing excellent angiographic results and the procedure was completed with no complication. SELECTIVE CORONARY ANGIOGRAM: The right coronary artery: Large-caliber vessel and a dominant vessel with critical disease involving the distal portion with a plaque rupture and thrombus formation Left main: Has mild disease only. Bifurcates into an LCx and LAD The left circumflex: Large-caliber vessel nondominant vessel. The LCx has mild disease only. Gives rise into the first and second obtuse marginal branches. OM1 works as a ramus intermedius The left anterior descending artery: The proximal LAD appears to have mild disease only gives rise into a large diagonal branch which bifurcated into 2 subbranches and the diagonal has mild to moderate diffuse disease. The LAD after that in the midportion by the bifurcation of septal egg grader has a lesion appears to be in the range of 60 to 70% and appears to be very focal. The mid to distal LAD has mild disease only. HEMODYNAMICS: The LVEDP was 17 mmHg with no significant gradient across aortic valve CONCLUSION: 1. Critical disease involving the distal RCA with a plaque rupture and thrombus formation. I performed successful PCI of the distal RCA as described above 2. Intermediate to severe disease with a focal lesion involving the mid LAD 3. Mildly elevated left-sided filling pressure POSTPROCEDURE MANAGEMENT: 1. Dual antiplatelet therapy using aspirin and Brilinta for 12 month 2. FFR of the LAD down the line
[2023-09-26] MEDS: SODIUM CHLORIDE 0.9% 1,000 ML in EMPTY BAG 1 BAG IV SCH (14:28)
[2023-09-26] MEDS: NICOTINE 7MG/24HR PATCH TRANSDERM SCH (15:49)
[2023-09-26] MEDS: TICAGRELOR 90 MG TAB PO SCH (20:27)
[2023-09-26] MEDS: PREGABALIN 50 MG CAP PO SCH (20:28)
[2023-09-26] MEDS: ATORVASTATIN 80 MG TAB PO SCH (20:28)
[2023-09-27 09:09] LABS: African American GFR (CKD) >90 (>60 ml/min/1.73 sqM); Anion Gap 6 mmol/L; Blood Urea Nitrogen 12 mg/dL (7-17); Calcium 9.2 mg/dL (8.4-10.2); Carbon Dioxide 23 mmol/L (22-30); Chloride 108 mmol/L (98-107); Glucose 115 mg/dL (74-99); Magnesium 1.7 mg/dL (1.6-2.3); Non-African American GFR(CKD) 85 (>60 ml/min/1.73 sqM); Potassium 4.1 mmol/L (3.5-5.1); Sodium 137 mmol/L (137-145)
[2023-09-27 09:12] LABS: Basophils # (A) 0.1 k/uL (0-0.2); Basophils % (A) 1 %; Eosinophils # (A) 0.2 k/uL (0-0.7); Eosinophils % (A) 2 %; HGB 14.1 gm/dL (11.4-16.0); Lymphocytes # (A) 3.1 k/uL (1.0-4.8); Lymphocytes % (A) 31 %; MCH 31.3 pg (25.0-35.0); MCHC 33.5 g/dL (31.0-37.0); MCV 93.5 fL (80.0-100.0); Mean Platelet Volume 7.7; Monocytes # (A) 0.5 k/uL (0-1.0); Monocytes % (A) 5 %; Neutrophils # (A) 6.1 k/uL (1.3-7.7); Neutrophils % (A) 61 %; Platelet Count 219 k/uL (150-450); RDW 14.1 % (11.5-15.5)
[2023-09-27 10:22] VITALS: BP 127/80; PULSE 83; RESP 17; TEMP 97.8
--- NOTE | 2023-09-27 11:47 | P.PN ---
Subjective HISTORY OF PRESENT ILLNESS: The patient is a pleasant 57-year-old female patient with a past medical history significant for diabetes and hypertension and dyslipidemia and overweight and smoking. She presented to the hospital complaining of chest discomfort. She was doing some yard work at home and subsequently she started experiencing discomfort in the middle of the chest as a pressure on the chest with radiation to her neck. No dizziness or lightheadedness and no presyncope or syncope and no sweating. She decided to come to the hospital where she initially presented to [facility] and underwent a blood work including troponin came in to be abnormal and subsequently she was transferred to [facility]. The troponin is consistent with acute coronary syndrome but the EKG showed sinus mechanism with nonspecific ST or T wave abnormalities. No history of coronary artery disease or congestive heart failure or cardiac arrhythmia and never seen a palliative care coordinator before. The rest of the blood work came in to be overall unremarkable. Currently she is chest pain-free but she is on heparin IV and she is on aspirin and beta-ana as well and statin. The examination is remarkable for stable vital signs with regular rate and rhythm and clear breathing sounds bilaterally and no edema was noted in the lower extremities September 27, 2023 Patient examined this morning at bedside. Patient currently denies any chest pain or pressure. She denies any shortness of breath. She has been up ambulating without difficulty. Vital signs are stable. 2D echo is currently pending. PHYSICAL EXAM: VITAL SIGNS: Reviewed. GENERAL: Well-developed in no acute distress. NECK: Supple. No JVD or thyromegaly LUNGS: Respirations even and unlabored. Lungs essentially clear to auscultation bilaterally. HEART: Regular rate and rhythm. S1 and S2 heard. EXTREMITIES: Normal range of motion. No clubbing or cyanosis. Peripheral pul ses intact. No lower extremity edema ASSESSMENT: Non-STEMI, status post cardiac catheterization revealing critical disease of the distal RCA with a plaque rupture and thrombus formation with successful PCI of distal RCA Intermediate to severe disease with a focal lesion involving the mid LAD, FFR to be performed on an outpatient basis Hypertension Hyperlipidemia Diabetes Nicotine dependence Family history of CAD PLAN: Continue dual antiplatelet therapy with Aspirin and Brilinta for 12 months Continue high intensity statin. LDL goal less than 70 Continue additional cardiac medications Smoking cessation recommended. Nicotine patch prescribed. Patient to be referred to [place] [facility] upon discharge Echo pending. Await results. Anticipate discharge home this afternoon pending echocardiogram results Patient to follow-up postdischarge with Dr. Osborne. Patient will require FFR of the LAD to be performed on an outpatient basis Nurse practitioner note has been reviewed by physician. Signing provider agrees with the documented findings, assessment, and plan of care documented by HONEY PROCESSOR as a scribe. Objective - Vital Signs Vital signs: Vital Signs Temp 97.8 F 09/27/23 08:20 Pulse 83 09/27/23 08:20 Resp 17 09/27/23 08:20 BP 127/80 09/27/23 08:20 Pulse Ox 93 L 09/27/23 08:39 FiO2 Intake & Output 09/26/23 09/27/23 09/27/23 18:59 06:59 18:59 Intake Total 214.582 120 Balance 214.582 120 Weight 77.111 kg Intake: IV 150 Intake, IV Titration 64.582 Amount Heparin Sod,Pork in 0.45% 64.582 NaCl 25,000 unit In 0.45 % NaCl 1 250ml.bag @ 12 UNITS/KG/HR 9.253 mls/hr IV .Q24H [facility] Rx#: [id number] Oral 120 Other: Voiding Method Toilet Toilet # Voids 1 - Labs CBC & Chem 7: 09/27/23 07:51 09/27/23 07:51 Labs: Abnormal Lab Results - Last 24 Hours (Table) 09/26/23 09/27/23 Range/Units 09:56 07:51 Chloride 114 H 108 H (98-107) mmol/L Carbon Dioxide 20 L (22-30) mmol/L Glucose 136 H 115 H (74-99) mg/dL Total Protein 5.9 L (6.3-8.2) g/dL
[2023-09-27 11:48] VITALS: BMI 26.6
--- NOTE | 2023-09-27 12:10 | P.DS ---
Providers Date of admission: 09/25/23 18:19 Expected date of discharge: 09/27/23 Attending physician: Lm Merino MD Consults: 09/25/23 18:19 Consult Physician Routine Consulting Provider: Viktoria Phillips Consult Reason/Comments: nstemi Do you want consulting provider notified?: Yes 09/26/23 13:28 Consult Physician Routine Consulting Provider: Viktoria Phillips Consult Reason/Comments: Post Interventional Patient Do you want consulting provider notified?: Already Contacted Primary care physician: Shoshana [facility] Course: Discharge Diagnosis: Acute NSTEMI status post stent to RCA Intermediate to severe disease with a focal lesion involving the mid LAD Hypertension Dyslipidemia Anxiety History of mild COPD, not in exacerbation Nicotine dependence Hospital Course: 57-year-old female with hypertension, COPD presenting from outside hospital after developing chest pain. Had elevated troponin. Started on heparin drip. Was transferred for further care. EKG does not show any significant ST-T wave changes. Vital signs within normal limits. Laboratory workup shows unremarkable CBC, BMP shows creatinine 0.71, troponin 0.05. Cardiology consulted. Underwent left heart cath which showed critical disease involving distal RCA with plaque rupture and thrombus formation, unsuccessful PCI to distal RCA, intermediate to severe disease with a focal lesion involving the mid LAD. Plan is to do FFR on an outpatient basis. Patient also had an echocardiogram done. No results available. Patient eager to go home. Discussed with cardiology, results for echocardiogram to be reviewed outpatient. Denies any chest pain at the time of discharge. Being discharged on dual antiplatelet therapy along with statin. Follow-up outpatient with both cardiology and PCP. Patient seen and examined at bedside. Vital signs reviewed and stable. General: Nontoxic, no distress, appears at stated age Derm: Warm, dry Head: Atraumatic, normocephalic, symmetric Eyes: EOMI, no lid lag, anicteric sclera Mouth: No lip lesion, mucus membranes moist Cardiovascular: S1S2 reg, no murmur Lungs: CTA bilateral, no rhonchi, no rales, no accessory muscle use Abdominal: Soft, nontender to palpation, no guarding, no appreciable organomegaly Ext: No gross muscle atrophy, no edema, no contractures Neuro: CN II-XI grossly intact, no focal neuro deficits Psych: Alert, oriented, appropriate affect A total of 33 minutes of time were spent preparing this complex discharge summary. Patient was discharged on 09/27/2023 at 12. Patient Condition at Discharge: Stable Plan - Discharge Summary Discharge Rx Participant: No New Discharge Prescriptions: New Aspirin 81 mg PO DAILY #60 tab Atorvastatin [Lipitor] 80 mg PO HS #60 tab Nitroglycerin Sl Tabs [Nitrostat] 0.4 mg SUBLINGUAL Q5M PRN #20 tab PRN Reason: Chest Pain Ticagrelor [Brilinta] 90 mg PO BID #120 tab Continue Gabapentin [Neurontin] 400 mg PO TID Propranolol [Inderal] 20 mg PO TID Ketoconazole 2% Cream [Nizoral 2%] 1 applic TOPICAL DAILY allopurinoL [Zyloprim] 300 mg PO DAILY Ketoconazole 2% Shampoo [Nizoral] 1 applic TOPICAL Q3D Cholecalciferol [Vitamin D3 (25 Mcg = 1000 Iu)] 25 mcg PO DAILY hydrOXYzine pamoate [Vistaril] 50 mg PO TID Pregabalin [Lyrica] 50 mg PO HS Fluticasone Nasal [place] [Flonase Nasal [place]] 1 spray EA NOSTRIL DAILY Omeprazole 20 mg PO DAILY Lidex 0.05% Solution 1 applic TOPICAL BID Discharge Medication List Cholecalciferol [Vitamin D3 (25 Mcg = 1000 Iu)] 25 mcg PO DAILY 09/25/23 [History] Fluticasone Nasal [place] [Flonase Nasal [place]] 1 spray EA NOSTRIL DAILY 09/25/23 [History] Gabapentin [Neurontin] 400 mg PO TID 09/25/23 [History] Ketoconazole 2% Cream [Nizoral 2%] 1 applic TOPICAL DAILY 09/25/23 [History] Ketoconazole 2% Shampoo [Nizoral] 1 applic TOPICAL Q3D 09/25/23 [History] Lidex 0.05% Solution 1 applic TOPICAL BID 09/25/23 [History] Omeprazole 20 mg PO DAILY 09/25/23 [History] Pregabalin [Lyrica] 50 mg PO HS 09/25/23 [History] Propranolol [Inderal] 20 mg PO TID 09/25/23 [History] allopurinoL [Zyloprim] 300 mg PO DAILY 09/25/23 [History] hydrOXYzine pamoate [Vistaril] 50 mg PO TID 09/25/23 [History] Aspirin 81 mg PO DAILY #60 tab 09/27/23 [Rx] Atorvastatin [Lipitor] 80 mg PO HS #60 tab 09/27/23 [Rx] Nitroglycerin Sl Tabs [Nitrostat] 0.4 mg SUBLINGUAL Q5M PRN #20 tab 09/27/23 [Rx] Ticagrelor [Brilinta] 90 mg PO BID #120 tab 09/27/23 [Rx] Follow up Appointment(s)/Referral(s): Shoshana Hicks MD [Primary Care Provider] - 1-2 days Juan Osborne MD [STAFF PHYSICIAN] - 1 Week Patient Instructions/Handouts: *Surgery [facility] - After Heart Catheterization - Auto Machinist Instructions, Heart Attack (DC) Activity/Diet/Wound Care/Special Instructions: Please see your PCP and cardiology. You will need to review the echocardiogram result with your knotter hand. Discharge Disposition: HOME SELF-CARE
--- NOTE | 2023-09-27 15:19 | CA ---
Transthoracic Echo Report Name: Marcy Moser Age: 57 Gender: F : 1965 Exam Date: 09/27/2023 08:20 Exam Location: [facility] Ht (in): 67 Wt (lb): 170 Ordering Physician: Mynor Barry MD Attending/Referring Phys: Community Administrator Deisi Najera RDCS Procedure CPT: Indications: nstemi Cardiac Hx: 1 stent Technical Quality: Good Contrast 1: Total Dose (mL): Contrast 2: Total Dose (mL): MEASUREMENTS (Male / Female) Normal Values 2D ECHO LV Diastolic Diameter PLAX 4.7 cm 4.2 - 5.9 / 3.9 - 5.3 cm LV Systolic Diameter PLAX 2.9 cm IVS Diastolic Thickness 1.0 cm 0.6 - 1.0 / 0.6 - 0.9 cm LVPW Diastolic Thickness 1.0 cm 0.6 - 1.0 / 0.6 - 0.9 cm LV Relative Wall Thickness 0.4 RV Internal Dim ED PLAX 2.8 cm LA Systolic Diameter LX 3.5 cm 3.0 - 4.0 / 2.7 - 3.8 cm LV Diastolic Volume MOD 4C 79.1 cm??? LV Systolic Volume MOD 4C 31.4 cm??? LV Ejection Fraction MOD 4C 60.3 % LV Cardiac Index MOD 4C 1957.4 cm???/min???m??? LV Diastolic Length 4C 7.8 cm LV Systolic Length 4C 6.7 cm LV Diastolic Volume MOD 2C 51.3 cm??? LV Systolic Volume MOD 2C 25.9 cm??? LV Ejection Fraction MOD 2C 49.5 % LV Cardiac Index MOD 2C 1041.1 cm???/min???m??? LV Diastolic Length 2C 7.1 cm LV Systolic Length 2C 6.1 cm LA Volume 45.7 cm??? 18 - 58 / 22 - 52 cm??? LA Volume Index 23.7 cm???/m??? 16 - 28 cm???/m??? M-MODE Aortic Root Diameter MM 3.1 cm AV Cusp Separation MM 1.9 cm DOPPLER AV Peak Velocity 102.9 cm/s AV Peak Gradient 4.2 mmHg MV Area PHT 3.8 cm??? Mitral E Point Velocity 55.1 cm/s Mitral A Point Velocity 65.3 cm/s Mitral E to A Ratio 0.8 MV Deceleration Time 201.4 ms TR Peak Velocity 201.1 cm/s TR Peak Gradient 16.2 mmHg Right Ventricular Systolic Press 21.2 mmHg FINDINGS Left Ventricle Left ventricular ejection fraction is estimated at 55-60 %. Left ventricular cavity size normal. Left ventricular wall thickness normal. No obvious regional wall motion abnormalities. Right Ventricle Normal right ventricular size and function. Right ventricular systolic pressure within normal limits. Right Atrium Normal right atrial size. No right atrial thrombus or mass seen. Left Atrium Normal left atrial size. No left atrial thrombus or mass present. Mitral Valve Structurally normal mitral valve. No mitral stenosis, regurgitation or prolapse. Aortic Valve Trileaflet aortic valve. No aortic valve stenosis or regurgitation. Tricuspid Valve Structurally normal tricuspid valve. Mild tricuspid regurgitation. Pulmonic Valve Structurally normal pulmonic valve. Pericardium No pericardial or pleural effusion. Aorta Normal size aortic root and proximal ascending aorta. CONCLUSIONS Normal LV size and function Previewed by: Dr. Chester Palmer MD (Electronically Signed) Final Date: 27 September 2023 15:18
[2023-09-27 15:54] LABS: Chol/HDL Ratio 5.75 Ratio; LDL Cholesterol,Calculated 96.2 mg/dL (0.0-131.0)
== END 2023-09-27 12:36 | disposition home or self-care (01) | DRG 322 ==
LOC: EC 17:32 → 3SCARD 18:19
PROVIDERS: ADMIT Student in an Organized Health Care Education/Training Program; ATTEND Student in an Organized Health Care Education/Training Program
PROC: 027034Z Dilation of Coronary Artery, One Artery with Drug-eluting Intraluminal Device, Percutaneous Approach (ICD-10-PCS; principal; 2023-09-26 11:54)
PROC: 4A023N7 Measurement of Cardiac Sampling and Pressure, Left Heart, Percutaneous Approach (ICD-10-PCS; 2023-09-26 11:54)
PROC: B2111ZZ Fluoroscopy of Multiple Coronary Arteries using Low Osmolar Contrast (ICD-10-PCS; 2023-09-26 11:54)
DX: I21.4 Non-ST elevation (NSTEMI) myocardial infarction (principal); J44.0 Chronic obstructive pulmonary disease with (acute) lower respiratory infection; E11.40 Type 2 diabetes mellitus with diabetic neuropathy, unspecified; E78.5 Hyperlipidemia, unspecified; F17.200 Nicotine dependence, unspecified, uncomplicated; F41.9 Anxiety disorder, unspecified; I10 Essential (primary) hypertension; K21.9 Gastro-esophageal reflux disease without esophagitis; E11.9 Type 2 diabetes mellitus without complications; M10.9 Gout, unspecified; Z79.82 Long term (current) use of aspirin; Z79.899 Other long term (current) drug therapy; Z82.49 Family history of ischemic heart disease and other diseases of the circulatory system; Z88.5 Allergy status to narcotic agent; Z71.6 Tobacco abuse counseling
CPT/HCPCS: 36415; 76937; 80048; 80053; 80061; 83036; 83735; 84484; 85025; 85610; 85730; 92978; 93005; 93306; 93458; 94760; 96365; 96366; 96375; 96376; 99285

== ENCOUNTER 2024-06-26 19:04 | Observation (INO) | payer OTHER ==
--- NOTE | 2024-06-26 19:33 | ED ---
General Adult HPI - General Chief complaint: Chest Pain Stated complaint: chest pain Time Seen by Provider: 06/26/24 19:05 Source: patient, EMS, RN notes reviewed, old records reviewed Mode of arrival: EMS Limitations: no limitations - History of Present Illness Initial comments: This is a 58-year-old female who presents to the emergency department the past medical history significant for high blood pressure a previous heart attack with a stent and continues to smoke. Patient states she woke up this morning and had chest pain lasted for about half an hour till she took a nitroglycerin and it went away. Patient states it returned so she went to [facility]. Patient denies any chest pain currently. Patient denies shortness of breath currently but she did have shortness of breath earlier when she had the chest pain. Patient states it radiated to both of her arms. Patient denies any recent fever chills or cough. Patient states it feels similar to previous heart attack pain - Related Data Home Medications Medication Instructions Recorded Confirmed Fluticasone Nasal [place] [Flonase 1 spray EA NOSTRIL DAILY 09/25/23 06/26/24 Nasal [place]] Ketoconazole 2% Cream [Nizoral 2%] 1 applic TOPICAL DAILY 09/25/23 06/26/24 Omeprazole 20 mg PO DAILY 09/25/23 06/26/24 Pregabalin [Lyrica] 50 mg PO TID 09/25/23 06/26/24 Propranolol [Inderal] 20 mg PO TID PRN 09/25/23 06/26/24 allopurinoL [Zyloprim] 300 mg PO DAILY 09/25/23 06/26/24 hydrOXYzine pamoate [Vistaril] 50 mg PO TID 09/25/23 06/26/24 Atorvastatin [Lipitor] 20 mg PO HS 06/26/24 06/26/24 Clopidogrel [Plavix] 75 mg PO DAILY 06/26/24 06/26/24 Lisinopril-Hctz 20-25 mg 1 tab PO DAILY 06/26/24 06/26/24 [Zestoretic 20-] Metoprolol Succinate [Metoprolol 25 mg PO DAILY 06/26/24 06/26/24 Succinate ER] Naproxen [EC-Naprosyn] 500 mg PO BID 06/26/24 06/26/24 Nicotine 21Mg/24Hr Patch [Habitrol] 1 patch TRANSDERM DAILY 06/26/24 06/26/24 Semaglutide [Ozempic] 0.5 mg SQ TH 06/26/24 06/26/24 Previous Rx's Medication Instructions Recorded Aspirin 81 mg PO DAILY #60 tab 09/27/23 Nitroglycerin Sl Tabs [Nitrostat] 0.4 mg SUBLINGUAL Q5M PRN #20 tab 09/27/23 Allergies Allergy/AdvReac Type Severity Reaction Status Date / Time tramadol AdvReac Nausea & Verified 06/26/24 19:56 Vomiting Review of Systems ROS Statement: Those systems with pertinent positive or pertinent negative responses have been documented in the HPI. ROS Other: All systems not noted in ROS Statement are negative. Past Medical History Past Medical History: Chest Pain / Angina, COPD, Myocardial Infarction ([place]), Neurologic Disorder Additional Past Medical History / Comment(s): kidney stones, neuropathy, [place] with stent (September 2023) History of Any Multi-Drug Resistant Organisms: None Reported Past Surgical History: Cholecystectomy, Orthopedic Surgery, Tubal Ligation Additional Past Surgical History / Comment(s): left shoulder surgery, lithotripsy for kidney stones Past Anesthesia/Blood Transfusion Reactions: No Reported Reaction Additional Past Anesthesia/Blood Transfusion Reaction / Comment(s): pts states she is slow to wake up from anesethia Past Psychological History: Anxiety, Depression Smoking Status: Current every day smoker Past Alcohol Use History: Occasional Past Drug Use History: None Reported General Exam - General Exam Comments Initial Comments: GENERAL: Patient is well-developed and well-nourished. Patient is nontoxic and well- hydrated and is in mild distress. ENT: Neck is soft and supple. No significant lymphadenopathy is noted. Oropharynx is clear. Moist mucous membranes. Neck has full range of motion without eliciting any pain. EYES: The sclera were anicteric and conjunctiva were pink and moist. Extraocular movements were intact and pupils were equal round and reactive to light. Ey elids were unremarkable. PULMONARY: Unlabored respirations. Good breath sounds bilaterally. No audible rales rhonchi or wheezing was noted. CARDIOVASCULAR: There is a regular rate and rhythm without any murmurs gallops or rubs. ABDOMEN: Soft and nontender with normal bowel sounds. SKIN: Skin is clear with no lesions or rashes and otherwise unremarkable. NEUROLOGIC: Patient is alert and oriented x3. Cranial nerves II through XII are grossly intact. Motor and sensory are also intact. Normal speech, volume and content. Symmetrical smile. MUSCULOSKELETAL: Normal extremities with adequate strength and full range of motion. No lower extremity swelling or edema. No calf tenderness. LYMPHATICS: No significant lymphadenopathy is noted PSYCHIATRIC: Normal psychiatric evaluation. Limitations: no limitations Course Vital Signs 06/26/24 06/26/24 06/26/24 19:05 21:55 22:17 Temperature 97.6 F Pulse Rate 74 76 Respiratory 18 18 Rate Blood Pressure 88/62 106/75 94/70 O2 Sat by Pulse 97 Oximetry 06/27/24 06/27/24 06/27/24 00:09 05:21 10:36 Temperature 98.7 F Pulse Rate 77 76 75 Respiratory 16 18 Rate Blood Pressure 98/64 115/89 127/85 O2 Sat by Pulse 96 99 Oximetry 06/27/24 10:54 Temperature Pulse Rate 78 Respiratory 18 Rate Blood Pressure 113/76 O2 Sat by Pulse 99 Oximetry Medical Decision Making - Medical Decision Making EKG is interpreted by myself. EKG shows sinus rhythm at 74 bpm MI interval is 165 QRS is 93 QT interval is 409 QTc is 437. Patient's EKG shows no ST segment elevation or depression Was pt. sent in by a medical professional or institution (, PA, DOCUMENTATION SUPERVISOR, urgent care, hospital, or halfway...) When possible be specific @ -No Did you speak to anyone other than the patient for history (EMS, parent, family, police, friend...)? What history was obtained from this source @ -No Did you review nursing and triage notes (agree or disagree)? Why? @ -I reviewed and agree with nursing and triage notes Were old charts reviewed (outside hosp., previous admission, EMS record, old EKG, old radiological studies, urgent care reports/EKG's, halfway records)? Report findings @ -No old charts were reviewed Differential Diagnosis? @ -MDM differential chest EKG interpreted by me (3pts min.). @ -As above X-rays interpreted by me (1pt min.). @ -None done CT interpreted by me (1pt min.). @ -None done U/S interpreted by me (1pt. min.). @ -None done What testing was considered but not performed or refused? (CT, X-rays, U/S, labs)? Why? @ -None What meds were considered but not given or refused? Why? @ -None Did you discuss the management of the patient with other professionals (professionals i.e. , PA, DOCUMENTATION SUPERVISOR, lab, RT, psych nurse, dialysis social worker, ship steward, teacher, forest fire control officer, medical case manager)? Give summary @ -I spoke with [facility] hospitalist agreed to admit the patient Was smoking cessation discussed for >3mins.? @ -No Was critical care preformed (if so, how long)? @ -No Were there social determinants of health that impacted care today? How? (Homelessness, low income, unemployed, alcoholism, drug addiction, transporta tion, low edu. Level, literacy, decrease access to med. care, nursing home, rehab)? @ -No Was there de-escalation of care discussed even if they declined (Discuss DNR or withdrawal of care, Hospice)? DNR status @ -No What co-morbidities impacted this encounter? (DM, HTN, Smoking, COPD, CAD, Cancer, CVA, ARF, Chemo, Hep., AIDS, mental health diagnosis, sleep apnea, morbid obesity)? @ -None Was patient admitted / discharged? Hospital course, mention meds given and route, prescriptions, significant lab abnormalities, going to OR and other pertinent info. @ -EKG showed no acute abnormality. Troponin came back normal. I will admit the patient to [facility] hospitalist with consult to cardiology Undiagnosed new problem with uncertain prognosis? @ -No Drug Therapy requiring intensive monitoring for toxicity (Heparin, Nitro, Insulin, Cardizem)? @ -No Were any procedures done? @ -No Diagnosis/symptom? @ -Chest pain Acute, or Chronic, or Acute on Chronic? @ -Acute Uncomplicated (without systemic symptoms) or Complicated (systemic symptoms)? @ -Complicated Side effects of treatment? @ -No Exacerbation, Progression, or Severe Exacerbation? @ -No Poses a threat to life or bodily function? How? (Chest pain, [place], [place], pneumonia, PE, COPD, DKA, ARF, appy, cholecystitis, CVA, Diverticulitis, Homicidal, Suicidal, threat to staff... and all critical care pts) @ -Yes this could lead to an [place] and endorgan dysfunction - Lab Data Result diagrams: 06/27/24 13:04 06/27/24 06:20 Lab Results 06/26/24 Range/Units 19:18 Troponin I 0.017 (0.000-0.034) ng/mL Disposition Clinical Impression: Chest pain Disposition: ADMITTED IP TO THIS HOSP Time of Disposition: 20:01
[2024-06-26] MEDS: NITROGLYCERIN SL TABS 0.4 MG TAB SUBLINGUAL PRN (21:58)
[2024-06-27] MEDS: MORPHINE SULFATE 2 MG/ML SYRINGE IVP PRN (00:09)
[2024-06-27] MEDS: NITROGLYCERIN OINT 1 INCH/GM PACKET TOPICAL SCH (01:33)
[2024-06-27 08:50] LABS: LDL Cholesterol,Calculated 78.2 mg/dL (0.0-131.0)
[2024-06-27 09:51] LABS: Basophils # (A) 0.1 k/uL (0-0.2); Basophils % (A) 1 %; Eosinophils # (A) 0.4 k/uL (0-0.7); Eosinophils % (A) 4 %; HCT 42.7 % (34.0-46.0); HGB 13.2 gm/dL (11.4-16.0); Hypochromasia Slight; Lymphocytes # (A) 3.4 k/uL (1.0-4.8); Lymphocytes % (A) 36 %; MCH 29.4 pg (25.0-35.0); MCHC 30.9 g/dL (31.0-37.0); Mean Platelet Volume 8.1; Monocytes # (A) 0.5 k/uL (0-1.0); Monocytes % (A) 5 %; Neutrophils % (A) 53 %; Platelet Count 239 k/uL (150-450); WBC 9.4 k/uL (3.8-10.6)
[2024-06-27 09:58] LABS: ALT 17 U/L (4-34); AST 22 U/L (14-36); African American GFR (CKD) 56 (>60 ml/min/1.73 sqM); Albumin 3.6 g/dL (3.5-5.0); Albumin/Globulin Ratio 1.5; Alkaline Phosphatase 75 U/L (38-126); Anion Gap 6 mmol/L; Blood Urea Nitrogen 20 mg/dL (7-17); Calcium 9.4 mg/dL (8.4-10.2); Carbon Dioxide 30 mmol/L (22-30); Chloride 104 mmol/L (98-107); Globulin 2.4 g/dL; Glucose 110 mg/dL (74-99); Magnesium 1.7 mg/dL (1.6-2.3); Non-African American GFR(CKD) 48 (>60 ml/min/1.73 sqM); Potassium 4.4 mmol/L (3.5-5.1); Sodium 140 mmol/L (137-145); Total Bilirubin 0.5 mg/dL (0.2-1.3)
[2024-06-27] MEDS: NICOTINE 21MG/24HR PATCH TRANSDERM SCH (10:37)
[2024-06-27] MEDS: allopurinoL 300 MG TAB PO SCH (10:37)
[2024-06-27] MEDS: PANTOPRAZOLE 40 MG TABLET PO SCH (10:37)
[2024-06-27] MEDS: ASPIRIN 325 MG TAB PO SCH (10:37)
[2024-06-27] MEDS: FLUTICASONE NASAL 50MCG/SPRAY 16GM BTL EA NOSTRIL SCH (11:37)
[2024-06-27] MEDS: CLOTRIMAZOLE 1% CREAM 30 GM TUBE TOPICAL SCH (11:47)
--- NOTE | 2024-06-27 12:54 | P.CRDCN ---
History of Present Illness History of present illness: HISTORY OF PRESENTING ILLNESS This is a pleasant 58-year-old with past medical history significant for hypertension, hyperlipidemia, tobacco abuse, CAD status post PCI of RCA 09/2023. She previously was admitted to the hospital in September 2019 for with a episode of chest pain and non-STEMI and underwent heart catheterization with ulcerated RCA plaque and underwent stenting of the RCA with other intermediates LAD disease with recommendations for future FFR. Echo at that time showed preserved EF 55%. She was unable to follow-up with Dr. Palm and followed up with a obstetrician/gynecologist in [place] from [facility]. She had been doing okay however over the last 1 week has been having intermi ttent episodes of chest pain which feels like a pressure sometimes radiating into her jaw. Does have some associated nausea, diaphoresis and sometimes short of breath. Additionally she has been having some psychiatric issues and hallucinations however right now currently calm. She states she was attempted on metoprolol by her doctor without any real improvement. Chest pain continued and therefore came to the emergency department. Troponin normal x 3. REVIEW OF SYSTEMS At the time of my exam: CONSTITUTIONAL: Denies fever or chills. CARDIOVASCULAR: +chest pain, +shortness of breath, no orthopnea, PND or palpitations. RESPIRATORY: Denies cough. GASTROINTESTINAL: Denies abdominal pain, diarrhea, constipation, nausea or vomiting. MUSCULOSKELETAL: Denies myalgias. NEUROLOGIC: Denies numbness, tingling or weakness. ENDOCRINE: Denies fatigue, weight change, polydipsia or polyurina. GENITOURINARY: Denies burning, hematuria or urgency with micturation. HEMATOLOGIC: Denies history of anemia or bleeding. PHYSICAL EXAMINATION Vital signs reviewed. CONSTITUTIONAL: No apparent distress. HEENT: Head is normocephalic. Pupils are equal, round. Sclerae anicteric. Mucous membranes of the mouth are moist. No JVD. No carotid bruit. CHEST EXAMINATION: Lungs are clear to auscultation. No chest wall tenderness is noted on palpation or with deep breathing. HEART EXAMINATION: Regular rate and rhythm. S1, S2 heard. No murmurs, gallops or rub. ABDOMEN: Soft, nontender. Positive bowel sounds. EXTREMITIES: 2+ peripheral pulses, no lower extremity edema and no calf tenderness. NEUROLOGIC EXAMINATION: Patient is awake, alert and oriented x3. ASSESSMENT Chest pain with nausea, diaphoresis and shortness of breath. Somewhat concerning for unstable angina CAD with prior history of PCI of RCA and with a residual LAD disease Tobacco abuse Hypertension Hyperlipidemia Questionable hallucinations/psychiatric disease PLAN Patient with intermittent chest pain concerning for angina. Sometimes radiating into her jaw and did receive some nitro with mild improvement. Discussed more definitive evaluation with heart catheterization especially given intermediate LAD disease from prior. Patient agreeable. Start heparin drip given concerning symptoms for unstable angina. Check 2D echo. Further recommendations to follow. Past Medical History Past Medical History: Chest Pain / Angina, COPD, Myocardial Infarction ([place]), Neurologic Disorder Additional Past Medical History / Comment(s): kidney stones, neuropathy, [place] with stent (September 2023) History of Any Multi-Drug Resistant Organisms: None Reported Past Surgical History: Cholecystectomy, Orthopedic Surgery, Tubal Ligation Additional Past Surgical History / Comment(s): left shoulder surgery, lith otripsy for kidney stones Past Anesthesia/Blood Transfusion Reactions: No Reported Reaction Additional Past Anesthesia/Blood Transfusion Reaction / Comment(s): pts states she is slow to wake up from anesethia Past Psychological History: Anxiety, Depression Smoking Status: Current every day smoker Past Alcohol Use History: Occasional Past Drug Use History: None Reported Medications and Allergies Home Medications Medication Instructions Recorded Confirmed Type Fluticasone Nasal [place] [Flonase 1 spray EA NOSTRIL DAILY 09/25/23 06/26/24 History Nasal [place]] Ketoconazole 2% Cream [Nizoral 2%] 1 applic TOPICAL DAILY 09/25/23 06/26/24 History Omeprazole 20 mg PO DAILY 09/25/23 06/26/24 History Pregabalin [Lyrica] 50 mg PO TID 09/25/23 06/26/24 History Propranolol [Inderal] 20 mg PO TID PRN 09/25/23 06/26/24 History allopurinoL [Zyloprim] 300 mg PO DAILY 09/25/23 06/26/24 History hydrOXYzine pamoate [Vistaril] 50 mg PO TID 09/25/23 06/26/24 History Aspirin 81 mg PO DAILY #60 tab 09/27/23 06/26/24 Rx Nitroglycerin Sl Tabs [Nitrostat] 0.4 mg SUBLINGUAL Q5M PRN #20 tab 09/27/23 06/26/24 Rx Atorvastatin [Lipitor] 20 mg PO HS 06/26/24 06/26/24 History Clopidogrel [Plavix] 75 mg PO DAILY 06/26/24 06/26/24 History Lisinopril-Hctz 20-25 mg 1 tab PO DAILY 06/26/24 06/26/24 History [Zestoretic ] Metoprolol Succinate [Metoprolol 25 mg PO DAILY 06/26/24 06/26/24 History Succinate ER] Naproxen [EC-Naprosyn] 500 mg PO BID 06/26/24 06/26/24 History Nicotine 21Mg/24Hr Patch [Habitrol] 1 patch TRANSDERM DAILY 06/26/24 06/26/24 History Semaglutide [Ozempic] 0.5 mg SQ TH 06/26/24 06/26/24 History Allergies Allergy/AdvReac Type Severity Reaction Status Date / Time tramadol AdvReac Nausea & Verified 06/26/24 19:56 Vomiting Physical Exam Vitals: Vital Signs Temp Pulse Resp BP Pulse Ox 06/27/24 10:54 78 18 113/76 99 06/27/24 10:36 98.7 F 75 18 127/85 99 06/27/24 05:21 76 16 115/89 96 06/27/24 00:09 77 98/64 06/26/24 22:17 76 18 94/70 06/26/24 21:55 106/75 06/26/24 19:05 97.6 F 74 18 88/62 97 Intake and Output 06/26/24 06/27/24 06/27/24 22:59 06:59 14:59 Other: Weight 77.111 kg Results 06/27/24 06:20 06/27/24 06:20 Cardiac Enzymes 06/26/24 06/26/24 06/27/24 Range/Units 19:18 22:15 01:29 AST (14-36) U/L Troponin I 0.017 0.020 0.017 (0.000-0.034) ng/mL 06/27/24 Range/Units 06:20 AST 22 (14-36) U/L Troponin I (0.000-0.034) ng/mL Lipids 06/27/24 Range/Units 06:20 Triglycerides 173.00 H (0.00-149.00) mg/dL Cholesterol 145.00 (0.00-200.00) mg/dL HDL Cholesterol 32.20 L (40.00-60.00) mg/dL Cholesterol/HDL Ratio 4.50 Ratio CBC 06/27/24 Range/Units 06:20 WBC 9.4 (3.8-10.6) k/uL RBC 4.50 (3.80-5.40) m/uL Hgb 13.2 (11.4-16.0) gm/dL Hct 42.7 (34.0-46.0) % Plt Count 239 (150-450) k/uL Comprehensive Metabolic Panel 06/27/24 Range/Units 06:20 Sodium 140 (137-145) mmol/L Potassium 4.4 (3.5-5.1) mmol/L Chloride 104 (98-107) mmol/L Carbon Dioxide 30 (22-30) mmol/L BUN 20 H (7-17) mg/dL Creatinine 1.23 H (0.52-1.04) mg/dL Glucose 110 H (74-99) mg/dL Calcium 9.4 (8.4-10.2) mg/dL AST 22 (14-36) U/L ALT 17 (4-34) U/L Alkaline Phosphatase 75 (38-126) U/L Total Protein 6.0 L (6.3-8.2) g/dL Albumin 3.6 (3.5-5.0) g/dL Current Medications Generic Name Dose Route Start Last Admin Trade Name Freq PRN Reason Stop Dose Admin Allopurinol 300 mg 06/27/24 09:45 06/27/24 10:37 Allopurinol 300 Mg Tab PO 300 mg DAILY CHRIS Administration Aspirin 325 mg 06/27/24 09:00 06/27/24 10:37 Aspirin 325 Mg Tab PO 325 mg DAILY [facility] Administration Atorvastatin Calcium 20 mg 06/27/24 21:00 Atorvastatin 20 Mg Tab PO HS CHRIS Clotrimazole 1 applic 06/27/24 09:45 06/27/24 11:47 Clotrimazole 1% Cream 30 Gm Tube TOPICAL Not Given DAILY CHRIS Fluticasone Propionate 1 spray 06/27/24 09:45 06/27/24 11:37 Fluticasone Nasal 50mcg/[place] 16gm Btl EA NOSTRIL 1 spray DAILY [facility] Administration Hydroxyzine Pamoate 50 mg 06/27/24 16:00 Hydroxyzine Pamoate 25 Mg Cap PO TID [facility] Sodium Chloride 1,000 mls @ 75 mls/hr 06/27/24 12:30 Saline 0.9% IV .[id number] [facility] Morphine Sulfate 2 mg 06/26/24 23:50 06/27/24 11:41 Morphine Sulfate 2 Mg/Ml Syringe IVP 2 mg Q4HR PRN Administration Pain/Discomfort Nicotine 1 patch 06/27/24 09:45 06/27/24 10:37 Nicotine 21mg/24hr Patch TRANSDERM 1 patch DAILY [facility] Administration Nitroglycerin 1 inch 06/27/24 00:00 06/27/24 11:47 Nitroglycerin Oint 1 Inch/Gm Packet TOPICAL Not Given Q6HR [facility] Nitroglycerin 0.4 mg 06/26/24 20:02 06/27/24 10:40 Nitroglycerin Sl Tabs 0.4 Mg Tab SUBLINGUAL 0.4 mg Q5M PRN Administration Chest Pain Pantoprazole Sodium 40 mg 06/27/24 09:45 06/27/24 10:37 Pantoprazole 40 Mg Tablet PO 40 mg [id number] [facility] Administration Intake and Output 06/26/24 06/27/24 06/27/24 22:59 06:59 14:59 Other: Weight 77.111 kg 06/27/24 06:20 06/27/24 06:20
[2024-06-27 13:27] LABS: Basophils # (A) 0.1 k/uL (0-0.2); Basophils % (A) 1 %; Eosinophils # (A) 0.4 k/uL (0-0.7); Eosinophils % (A) 4 %; HGB 15.3 gm/dL (11.4-16.0); Lymphocytes # (A) 3.6 k/uL (1.0-4.8); Lymphocytes % (A) 37 %; MCH 29.3 pg (25.0-35.0); MCHC 31.3 g/dL (31.0-37.0); MCV 93.8 fL (80.0-100.0); Mean Platelet Volume 7.3; Monocytes # (A) 0.4 k/uL (0-1.0); Monocytes % (A) 5 %; Neutrophils # (A) 5.1 k/uL (1.3-7.7); Neutrophils % (A) 52 %; Platelet Count 254 k/uL (150-450); RBC 5.22 m/uL (3.80-5.40); RDW 13.9 % (11.5-15.5); WBC 9.8 k/uL (3.8-10.6)
[2024-06-27 13:32] LABS: INR 0.9 (<1.2); Partial Thromboplastin Time 25.9 sec (22.0-30.0); Prothrombin Time 10.3 sec (10.0-12.5)
[2024-06-27] MEDS: HEPARIN SODIUM 1,000 UN/ML (10ML VL) IV ONE (13:34)
[2024-06-27] MEDS: HEPARIN SOD,PORK IN 0.45% NACL 25,000 UNIT in 0.45% NACL 1 250ML.BAG IV SCH (13:35)
[2024-06-27] MEDS: ALPRAZolam 0.5 MG TAB PO PRN (13:47)
[2024-06-27] MEDS: SODIUM CHLORIDE 0.9% 1,000 ML IV SCH (13:48)
[2024-06-27] MEDS: hydrOXYzine pamoate 25 MG CAP PO SCH (18:59)
[2024-06-27] MEDS: HEPARIN SODIUM 1,000 UN/ML (10ML VL) IV PRN (20:40)
[2024-06-27] MEDS: ATORVASTATIN 20 MG TAB PO SCH (20:40)
[2024-06-27] MEDS: ALPRAZolam 0.25 MG TAB PO PRN (20:46)
[2024-06-28 03:59] LABS: Partial Thromboplastin Time 38.8 sec (22.0-30.0); Prothrombin Time 10.7 sec (10.0-12.5)
[2024-06-28] MEDS: ASPIRIN 325 MG TAB PO ONE (04:59)
[2024-06-28] MEDS: ATORVASTATIN 80 MG TAB PO ONE (04:59)
[2024-06-28 05:04] LABS: Glucose,Whole Blood 94 mg/dL (70-110)
--- NOTE | 2024-06-28 06:25 | P.HPIM ---
History of Present Illness H&P Date: 06/27/24 This is a 58-year-old female who presented to the emergency department from [facility] reporting having chest pain. Patient reports she has a past medical history of receiving a stent in September 2023 here at the facility and unsure of which cardiology she was evaluated by. Patient follows with Dr. Hicks in the outpatient setting with a past medical history of chest pain, angina, COPD, previous myocardial infarction, neurologic disorder with neuropathy, history of kidney stones, anxiety/depression, reports to smoking cigarettes, occasional alcohol use and denies any other illicit drug use. Patient had been at [facility] as she lives in that area and they sent her here for further cardiac evaluation. Patient was given a nitro sublingual and reported improvements in chest pain. Labs reviewed and WBC is normal at 9.4, hemoglobin 13.2, platelets 239, sodium 140 with a potassium of 4.4, BUN 20 and creatinine mildly elevated at 1.23. Glucose was 110, magnesium 1.7, troponins 0.017, 0.020, 0.017, cholesterol panel was performed showing hyperlipidemia. Patient was admitted under observation REVIEW OF SYSTEMS: CONSTITUTIONAL: No fever, no malaise, no fatigue. HEENT: No recent visual problems or hearing problems. Denied any sore throat. CARDIOVASCULAR: Reports of chest pain intermittent although has improved since admission, orthopnea, PND, no palpitations, no syncope. PULMONARY: No shortness of breath, no cough, no hemoptysis. GASTROINTESTINAL: No diarrhea, reports occasional nausea, no vomiting, no abdominal pain. NEUROLOGICAL: No headaches, no weakness, no numbness. HEMATOLOGICAL: Denies any bleeding or petechiae. GENITOURINARY: Denies any burning micturition, frequency, or urgency. MUSCULOSKELETAL/RHEUMATOLOGICAL: Denies any joint pain, swelling, or any muscle pain. ENDOCRINE: Denies any polyuria or polydipsia. The rest of the 14-point review of systems is negative. PHYSICAL EXAMINATION: GENERAL: The patient is alert and oriented x3, not in any acute distress. Mildly anxious well developed, well nourished. Appears older than stated age HEENT: Pupils are round and equally reacting to light. EOMI. No scleral icterus. No conjunctival pallor. Normocephalic, atraumatic. No pharyngeal erythema. No thyromegaly. CARDIOVASCULAR: S1 and S2 present. No murmurs, rubs, or gallops. PULMONARY: Chest is clear to auscultation, no wheezing or crackles. ABDOMEN: Soft, nontender, nondistended, normoactive bowel sounds. No palpable organomegaly. MUSCULOSKELETAL: No joint swelling or deformity. EXTREMITIES: No cyanosis, clubbing, or pedal edema. NEUROLOGICAL: Gross neurological examination did not reveal any focal deficits. SKIN: No rashes. Assessment: Chest pain, possible unstable angina History of recent PCI stenting to the RCA in September 2023 Acute kidney injury, likely secondary to diuretic use, will hold HydroDIURIL for now Hypertension history Hyperlipidemia History of anxiety/depression Continued ongoing nicotine abuse GI prophylaxis DVT prophylaxis Full code Plan: Patient was admitted from [facility] and transferred here for further evaluation with cardiology evaluation for continued ongoing chest pain. Patient to continue on telemetry monitoring and awaiting cardiac evaluation with plans of possible cardiac catheterization on 06/28/2024 Home medications reviewed and resumed as appropriate Smoking cessation counseled and recommend nicotine patch for now Will follow-up on repeat labs continue with gentle hydration The impression and plan of care has been dictated by Elissa Medrano, Nurse Practitioner as directed. Dr. Andrzej MD I have performed a history and examination and MDM of this patient, discussed the same with the dictator, and agree with the dictator's assessment and plan as written ,documented as a scribe. Based on total visit time, I have performed more than 50% of the visit. Past Medical History Past Medical History: Chest Pain / Angina, COPD, Myocardial Infarction (MT), Neurologic Disorder Additional Past Medical History / Comment(s): kidney stones, neuropathy, MT with stent (September 2023) History of Any Multi-Drug Resistant Organisms: None Reported Past Surgical History: Cholecystectomy, Orthopedic Surgery, Tubal Ligation Additional Past Surgical History / Comment(s): left shoulder surgery, lithotripsy for kidney stones Past Anesthesia/Blood Transfusion Reactions: No Reported Reaction Additional Past Anesthesia/Blood Transfusion Reaction / Comment(s): pts states she is slow to wake up from an[place] Past Psychological History: Anxiety, Depression Smoking Status: Current every day smoker Past Alcohol Use History: Occasional Past Drug Use History: None Reported Medications and Allergies Home Medications Medication Instructions Recorded Confirmed Type Fluticasone Nasal [place] [Flonase 1 spray EA NOSTRIL DAILY 09/25/23 06/26/24 History Nasal [place]] Ketoconazole 2% Cream [Nizoral 2%] 1 applic TOPICAL DAILY 09/25/23 06/26/24 History Omeprazole 20 mg PO DAILY 09/25/23 06/26/24 History Pregabalin [Lyrica] 50 mg PO TID 09/25/23 06/26/24 History Propranolol [Inderal] 20 mg PO TID PRN 09/25/23 06/26/24 History allopurinoL [Zyloprim] 300 mg PO DAILY 09/25/23 06/26/24 History hydrOXYzine pamoate [Vistaril] 50 mg PO TID 09/25/23 06/26/24 History Aspirin 81 mg PO DAILY #60 tab 09/27/23 06/26/24 Rx Nitroglycerin Sl Tabs [Nitrostat] 0.4 mg SUBLINGUAL Q5M PRN #20 tab 09/27/23 06/26/24 Rx Atorvastatin [Lipitor] 20 mg PO HS 06/26/24 06/26/24 History Clopidogrel [Plavix] 75 mg PO DAILY 06/26/24 06/26/24 History Lisinopril-Hctz 20-25 mg 1 tab PO DAILY 06/26/24 06/26/24 History [Zestoretic 20-25] Metoprolol Succinate [Metoprolol 25 mg PO DAILY 06/26/24 06/26/24 History Succinate ER] Naproxen [EC-Naprosyn] 500 mg PO BID 06/26/24 06/26/24 History Nicotine 21Mg/24Hr Patch [Habitrol] 1 patch TRANSDERM DAILY 06/26/24 06/26/24 History Semaglutide [Ozempic] 0.5 mg SQ TH 06/26/24 06/26/24 History Allergies Allergy/AdvReac Type Severity Reaction Status Date / Time tramadol AdvReac Nausea & Verified 06/26/24 19:56 Vomiting Physical Exam Vitals: Vital Signs Temp Pulse Resp BP Pulse Ox 06/27/24 05:21 76 16 115/89 96 06/27/24 00:09 77 98/64 06/26/24 22:17 76 18 94/70 06/26/24 21:55 106/75 06/26/24 19:05 97.6 F 74 18 88/62 97 Intake and Output 03/02/1006/27/24 06/27/24 22:59 06:59 14:59 Other: Weight 77.111 kg Results CBC & Chem 7: 06/27/24 13:04 06/27/24 06:20 Labs: Abnormal Lab Results - Last 24 Hours (Table) 06/27/24 Range/Units 06:20 Triglycerides 173.00 H (0.00-149.00) mg/dL HDL Cholesterol 32.20 L (40.00-60.00) mg/dL
[2024-06-28 09:05] LABS: Basophils # (A) 0.08 X 10*3/uL (0.00-0.10); Basophils % (A) 0.9 %; Eosinophils # (A) 0.35 X 10*3/uL (0.04-0.35); Eosinophils % (A) 3.9 %; Lymphocytes # (A) 4.43 X 10*3/uL (0.90-5.00); Lymphocytes % (A) 49.9 %; MCH 29.8 pg (27.0-32.0); MCHC 32.5 g/dL (32.0-37.0); MCV 91.7 FL (80.0-97.0); Mean Platelet Volume 10.9 FL (9.5-12.2); Monocytes # (A) 0.53 X 10*3/uL (0.20-1.00); NRBC Per 100 WBC 0 X 10*3/uL (0.00-0.01); Neutrophils # (A) 3.47 X 10*3/uL (1.80-7.70); Neutrophils % (A) 39.1 %; Platelet Count 225 X 10*3/uL (140-440); RBC 4.36 X 10*6/uL (4.10-5.20); WBC 8.88 X 10*3/uL (4.50-10.00)
[2024-06-28 10:26] LABS: Blood Urea Nitrogen 13.5 mg/dL (9.0-27.0); Carbon Dioxide 23.2 mmol/L (21.6-31.8); Chloride 107 mmol/L (96-109); Glucose 109 mg/dL (70-110); Potassium 3.7 mmol/L (3.5-5.5); Sodium 142 mmol/L (135-145)
[2024-06-28 10:27] LABS: ALT 16 U/L (8-44); AST 21 U/L (13-35); Albumin 3.7 g/dL (3.8-4.9); Albumin/Globulin Ratio 1.95 Ratio (1.60-3.17); Alkaline Phosphatase 69 U/L (41-126); Calcium 8.7 mg/dL (8.7-10.3); Globulin 1.9 g/dL (1.6-3.3); Total Bilirubin 0.2 mg/dL (0.3-1.2); Total Protein 5.6 g/dL (6.2-8.2)
[2024-06-28] MEDS: IV FLUID CONTINUATION 1,000 ML IV ONE (13:37)
[2024-06-28] MEDS: MIDAZOLAM 2 MG/2 ML VIAL IVP ONE (13:55)
[2024-06-28] MEDS: HEPARIN SODIUM,PORCINE 10,000 UNIT in SODIUM CHLORIDE 0.9% 1,000 ML IRRIGATION PRN (13:55)
[2024-06-28] MEDS: HEPARIN SODIUM,PORCINE (1 ML) 2,500 UNIT in SODIUM CHLORIDE 0.9% 250 ML IRRIGATION PRN (13:55)
[2024-06-28] MEDS: LIDOCAINE 1% INJ 10MG/ML (20 ML MDV) SQ ONE (13:57)
[2024-06-28] MEDS: HEPARIN SODIUM 1,000 UN/ML (10ML VL) IVP ONE ×3 (13:58→14:03)
[2024-06-28] MEDS: VERAPAMIL SYRINGE (5 MG/10 ML) INTRAARTER ONE (13:58)
[2024-06-28] MEDS: PRASUGREL 10 MG TAB PO ONE (14:03)
[2024-06-28] MEDS: fentaNYL (PF) 50 MCG/ML 2 ML AMP IVP ONE (14:09)
[2024-06-28] MEDS: NITROGLYCERIN 1000MCG/10ML SYRINGE INTRACORON ONE (14:29)
[2024-06-28] MEDS: niCARdipine Syringe (1,000 mcg/10 mL) INTRACORON ONE (14:29)
[2024-06-28] MEDS: IOPAMIDOL-250 100ML BTL INTRAARTER ONE (14:39)
[2024-06-28] MEDS ORDERED: MAG HYDROX/AL HYDROX/SIMETH 30 ML CUP PO PRN (14:45)
[2024-06-28] MEDS ORDERED: RX INFO: IV CONTRAST WAS GIVEN 1 EACH MISC MISCELLANE PRN (14:45)
[2024-06-28] MEDS ORDERED: ATROPINE SULFATE 0.1 MG/ML 10ML SYRINGE IV PRN (14:45)
[2024-06-28] MEDS ORDERED: NITROGLYCERIN SL TABS 0.4 MG TAB SUBLINGUAL PRN (14:45)
--- NOTE | 2024-06-28 14:55 | P.PCN ---
Date of Procedure: 06/28/24 Operative Findings: CARDIAC CATHETERIZATION AND PERCUTANEOUS CORONARY INTERVENTION PERFORMING PHYSICIAN: Juan Osborne MD, [facility] PROCEDURE PERFORMED: 1. Selective right and left coronary angiogram and left heart catheterization 2. Successful stenting of distal RCA using 4.0 x 28 mm Xience SOHA with an ex cellent angiographic results 3. Adjunctive use of IVUS and IFR 4. Ultrasound-guided access of the right radial artery INDICATION: This is a 58-year-old female patient with known CAD with prior stenting of the RCA and known intermediate disease involving the LAD was admitted to the hospital with chest discomfort concerning for angina COMPLICATION: None APPROACH: Right radial artery LEVEL OF SEDATION: Moderate with the sedation time off 30 minutes PROCEDURE DESCRIPTION: After obtaining informed consent the patient was brought to the cardiac catheter via the right radial artery was cannulated using micropuncture technique under ultrasound guidance a micropuncture wire passed easily then I placed a 6 [place] 11 cm sheath at the right radial artery and give the patient a total of 6000's of heparin intravenous with continuous ACT monitoring and also 2 mg of verapamil intra-arterial. Selective right and left coronary angiogram performed using JR4 and JL 3.5 catheters with a left heart catheterization was performed using the JR4 catheter. After that I decided to PCI the RCA. Anticoagulation continued using heparin with continuous ACT monitoring and subsequently I did engage the R CA using JR 3.5 guiding catheter. I did wired using a run-through wire. IVUS was performed that showed a diameter around 4.0 to 4.5 mm in diameter in the distal segment of the lesion and about 5 mm in the proximal segment of the lesion. Predilatation was performed using 3.5 mm score flex balloon before I deployed 4.0 x 28 mm stent which was postdilated using 5 mm NC balloon with final angiogram showing excellent angiographic results with CHLOE-3 flow. After that I decided to IFR the LAD. After zeroing the Dobler wire and equalizing between the Dobler wire and guiding catheter which was JL 3.5 guiding catheter the left main was engaged and subsequently wired using the Dobler wire with IFR came in to be initially at 0.90 and subsequently 0.89. Giving the borderline lesion I decided to treat the patient medically. The procedure was completed with no complication SELECTIVE CORONARY ANGIOGRAM: The right coronary artery: The distal RCA stent appeared to be patent but proximal to the stent there is a critical de francine lesion appears to be in the range of 99.9%. The proximal and mid RCA have mild disease on Left main: Appears to have mild disease only The left circumflex: Large caliber vessel nondominant vessel and appears to be angiographically normal The left anterior descending artery: The LAD in the proximal portion appears to have intermediate lesion appears to be in the range of 50%. The lesion documented to be nonflow-limiting by Doppler wire the LAD gives rise into a diagonal branch which is a medium size caliber vessel with mild to moderate disease only HEMODYNAMICS: LVEDP was about 18 mmHg with no significant gradient across the aortic valve CONCLUSION: 1. Critical disease involving the mid to distal RCA. Patent stent in the distal RCA. I did perform successful PCI of the RCA 2. Intermediate disease involving the LAD documented to be negative IFR with IFR of 0.90 3. Mildly elevated left-sided filling pressure POSTPROCEDURE MANAGEMENT: 1. Dual antiplatelet therapy using aspirin and Effient for 6-12 month 2. Aggressive cholesterol control 3. Follow-up with the patient
[2024-06-28] MEDS: SODIUM CHLORIDE 0.9% 1,000 ML in EMPTY BAG 1 BAG IV SCH (17:31)
[2024-06-28] MEDS: METOPROLOL TARTRATE 25 MG TAB PO SCH (21:03)
[2024-06-28] MEDS: ATORVASTATIN 20 MG TAB PO SCH (21:06)
[2024-06-28] MEDS: ZOLPIDEM 5 MG TAB PO PRN (21:06)
--- NOTE | 2024-06-29 04:42 | P.PN ---
Subjective Progress Note Date: 06/28/24 This is a 58-year-old female who presented to the emergency department from [place] reporting having chest pain. Patient reports she has a past medical history of receiving a stent in September 2023 here at the facility and unsure of which cardiology she was evaluated by. Patient follows with Dr. Pinky levi in the outpatient setting with a past medical history of chest pain, angina, COPD, previous myocardial infarction, neurologic disorder with neuropathy, history of kidney stones, anxiety/depression, reports to smoking cigarettes, occasional alcohol use and denies any other illicit drug use. Patient had been at [place] as she lives in that area and they sent her here for further cardiac evaluation. Patient was given a nitro sublingual and reported improvements in chest pain. Labs reviewed and WBC is normal at 9.4, hemoglobin 13.2, platelets 239, sodium 140 with a potassium of 4.4, BUN 20 and creatinine mildly elevated at 1.23. Glucose was 110, magnesium 1.7, troponins 0.017, 0.020, 0.017, cholesterol panel was performed showing hyperlipidemia. Patient was admitted under observation 06/28/2024 Patient is seen in follow-up today and currently n.p.o. being followed by cardiology. Patient is scheduled undergo cardiac catheterization this morning and will await official report. Discussed with the patient if cardiac catheterization is normal and no surgical intervention, cardiology may clear the patient for discharge otherwise if intervention is performed patient will be mon itored on continue telemetry monitoring and will discuss with cardiology regarding discharge planning in the next 24 to 48 hours. Will follow-up on repeat labs as well and kidney functions have improved. Review of systems: Constitutional: No reports of fatigue, fever, or chills Cardiovascular: No reports of further chest pain or palpitations, reports on occasion some heaviness of the chest Respiratory: No reports of shortness of breath or cough GI: No reports of nausea, vomiting, or diarrhea : No reports of dysuria or retention Neurovascular: No reports of weakness or numbness All medications have been reviewed PHYSICAL EXAMINATION: GENERAL: The patient is alert and oriented x3, not in any acute distress. Mildly anxious well developed, well nourished. Appears older than stated age HEENT: Pupils are round and equally reacting to light. EOMI. No scleral icterus. No conjunctival pallor. Normocephalic, atraumatic. No pharyngeal erythema. No thyromegaly. CARDIOVASCULAR: S1 and S2 present. No murmurs, rubs, or gallops. PULMONARY: Chest is clear to auscultation, no wheezing or crackles. ABDOMEN: Soft, nontender, nondistended, normoactive bowel sounds. No palpable organomegaly. MUSCULOSKELETAL: No joint swelling or deformity. EXTREMITIES: No cyanosis, clubbing, or pedal edema. NEUROLOGICAL: Gross neurological examination did not reveal any focal deficits. SKIN: No rashes. Assessment: Chest pain, possible unstable angina History of recent PCI stenting to the RCA in September 2023 Acute kidney injury, likely secondary to diuretic use, will hold HydroDIURIL for now, improving Hypertension history Hyperlipidemia History of anxiety/depression Continued ongoing nicotine abuse GI prophylaxis DVT prophylaxis Full code Plan: Patient was admitted from [place] and transferred here for further evaluation with cardiology evaluation for continued ongoing chest pain. Patient to continue on telemetry monitoring and awaiting cardiac evaluation with plans of cardiac catheterization this morning 06/28/2024, will await for official report. If negative patient may be cleared by cardiology for discharge home Home medications reviewed and resumed as appropriate Smoking cessation counseled and recommend nicotine patch for now Will follow-up on repeat labs continue with gentle hydration, kidney functions are improving will continue gentle hydration overnight and repeat BMP in a.m. The impression and plan of care has been dictated by Elissa Medrano, Nurse Practitioner as directed. Dr. Andrzej MD I have performed a history and examination and MDM of this patient, discussed the same with the dictator, and agree with the dictator's assessment and plan as written ,documented as a scribe. Based on total visit time, I have performed more than 50% of the visit. Objective - Vital Signs Vital signs: Vital Signs Temp 97.7 F 06/28/24 07:52 Pulse 73 06/28/24 07:52 Resp 16 06/28/24 07:52 BP 110/70 06/28/24 07:52 Pulse Ox 96 06/28/24 07:52 FiO2 Intake & Output 06/27/24 06/28/24 06/28/24 18:59 06:59 18:59 Intake Total 695.720 Balance 695.720 Weight 77.111 kg 80.9 kg Intake: Intake, IV Titration 155.720 Amount Heparin Sod,Pork in 0.45% 155.720 NaCl 25,000 unit In 0.45 % NaCl 1 250ml.bag @ 12 UNITS/KG/HR 9.253 mls/hr IV .Q24H [facility] Rx#: [id number] Oral 540 Other: # Voids 1 - Labs CBC & Chem 7: 06/28/24 03:15 06/28/24 06:00 Labs: Abnormal Lab Results - Last 24 Hours (Table) 06/27/24 06/27/24 06/27/24 Range/Units 06:20 06:20 13:04 Hct 49.0 H (34.0-46.0) % MCHC 30.9 L (31.0-37.0) g/dL APTT (22.0-30.0) sec BUN 20 H (7-17) mg/dL Creatinine 1.23 H (0.52-1.04) mg/dL Glucose 110 H (74-99) mg/dL Total Protein 6.0 L (6.3-8.2) g/dL 06/27/24 06/28/24 Range/Units 18:31 03:15 Hct (34.0-46.0) % MCHC (31.0-37.0) g/dL APTT 39.0 H 38.8 H (22.0-30.0) sec BUN (7-17) mg/dL Creatinine (0.52-1.04) mg/dL Glucose (74-99) mg/dL Total Protein (6.3-8.2) g/dL
[2024-06-29 06:57] LABS: African American GFR (CKD) 88 (>60 ml/min/1.73 sqM); Anion Gap 6 mmol/L; Blood Urea Nitrogen 11 mg/dL (7-17); Calcium 9.2 mg/dL (8.4-10.2); Carbon Dioxide 22 mmol/L (22-30); Chloride 108 mmol/L (98-107); Glucose 101 mg/dL (74-99); Non-African American GFR(CKD) 76 (>60 ml/min/1.73 sqM); Potassium 3.8 mmol/L (3.5-5.1); Sodium 136 mmol/L (137-145)
[2024-06-29 08:25] VITALS: BP 128/86; PULSE 87; RESP 16; TEMP 97.8
[2024-06-29] MEDS: ASPIRIN 81 MG PO SCH (08:44)
[2024-06-29] MEDS ORDERED: ASPIRIN 325 MG TAB PO SCH (09:00)
[2024-06-29] MEDS: PRASUGREL 10 MG TAB PO SCH (11:02)
--- NOTE | 2024-06-29 11:40 | P.PN ---
Subjective HISTORY OF PRESENT ILLNESS: This is a pleasant 58-year-old with past medical history significant for hypertension, hyperlipidemia, tobacco abuse, CAD status post PCI of RCA 09/2023. She previously was admitted to the hospital in September 2019 for with a episode of chest pain and non-STEMI and underwent heart catheterization with ulcerated RCA plaque and underwent stenting of the RCA with other intermediates LAD disease with recommendations for future FFR. Echo at that time showed preserved EF 55%. She was unable to follow-up with Dr. Palm and followed up with a glycerin supervisor in [place] from [facility]. She had been doing okay however over the last 1 week has been having intermittent episodes of chest pain which feels like a pressure sometimes radiating into her jaw. Does have some associated nausea, diaphoresis and sometimes short of breath. Additionally she has been having some psychiatric issues and hallucinations however right now currently calm. She states she was attempted on metoprolol by her doctor without any real improvement. Chest pain continued and therefore came to the emergency department. Troponin normal x 3. 06/29/2024 Patient is status post cardiac catheterization yesterday with Dr. Osborne revealing critical disease involving the mid to distal RCA. Patent stent in the distal RCA. Patient underwent PCI of the RCA. Intermediate disease involving the LAD which was found to be nonischemic with IFR of 0.90. Mildly elevated left-sided filling pressures. Patient examined this morning at the bedside. Patient reports improvement in her symptoms. She currently denies chest pain or shortness of breath. Vital signs are stable. PHYSICAL EXAM: VITAL SIGNS: Reviewed. GENERAL: Well-developed in no acute distress. NECK: Supple. No JVD or thyromegaly LUNGS: Respirations even and unlabored. Lungs essentially clear to auscultation bilaterally. HEART: Regular rate and rhythm. S1 and S2 heard. EXTREMITIES: Normal range of motion. No clubbing or cyanosis. Peripheral pulses intact. No lower extremity edema ASSESSMENT: Chest pain CAD with prior history of PCI of RCA and with a residual LAD disease Tobacco abuse Hypertension Hyperlipidemia Questionable hallucinations/psychiatric disease PLAN: Continue dual antiplatelet therapy with aspirin and Effient Continue statin therapy. LDL goal less than 70. Continue additional cardiac medications Patient is stable for discharge home today from a cardiac standpoint Patient to follow-up post discharge in the office with Dr. Osborne Nurse practitioner note has been reviewed by physician. Signing provider agrees with the documented findings, assessment, and plan of care documented by [employer] as a scribe. Objective - Vital Signs Vital signs: Vital Signs Temp 97.8 F 06/29/24 08:00 Pulse 87 06/29/24 08:00 Resp 16 06/29/24 08:00 BP 128/86 06/29/24 08:00 Pulse Ox 93 L 06/29/24 08:00 FiO2 Intake & Output 06/28/24 06/29/24 06/29/24 18:59 06:59 18:59 Intake Total 300 500 240 Balance 300 500 240 Weight 80.6 kg Intake: IV 300 Oral 500 240 Other: # Voids 2 1 - Labs CBC & Chem 7: 06/28/24 03:15 06/29/24 05:57 Labs: Abnormal Lab Results - Last 24 Hours (Table) 06/29/24 Range/Units 05:57 Sodium 136 L (137-145) mmol/L Chloride 108 H (98-107) mmol/L Glucose 101 H (74-99) mg/dL
--- NOTE | 2024-06-30 13:42 | P.DS ---
Providers Date of admission: 06/26/24 20:03 Expected date of discharge: 06/29/24 Attending physician: Elizabeth Parker Consults: 06/26/24 20:02 Consult Physician Urgent Consulting Provider: Viktoria Phillips Consult Reason/Comments: Chest pain Do you want consulting provider notified?: Yes 06/28/24 14:45 Consult Physician Routine Consulting Provider: Viktoria Phillips Consult Reason/Comments: Post Interventional patient Do you want consulting provider notified?: Already Contacted Primary care physician: Shoshana Hicks [facility] Course: Final diagnosis Chest pain, possible unstable angina, status post cardiac catheterization with PCI stenting to the distal RCA History of recent PCI stenting to the RCA in September 2023 Acute kidney injury, likely secondary to diuretic use, will hold HydroDIURIL for now Hypertension history Hyperlipidemia History of anxiety/depression Continued ongoing nicotine abuse GI prophylaxis DVT prophylaxis Full code Discharge disposition Patient is being discharged in a stable condition with guarded prognosis to home. Patient will follow-up with Dr. Hicks in the outpatient setting upon discharge. Patient is to continue with current medications and outpatient follow-up with cardiology as scheduled. Total time taken is greater than 35 minutes. Hospital course This is a 58-year-old female who was recently admitted with chest pain and sent from [place] here at [facility] for further cardiac evaluation. Patient symptomatic and recently underwent stenting to the RCA in September 2023. Patient having continued ongoing chest pain and cardiology evaluated recommending cardiac catheterization. Patient is status post cardiac catheterization on 06/28/2024 and underwent PTCi stenting of the distal RCA. Patient monitored o vernight with no acute changes reporting's to feeling improved with no further chest pain. Patient has been cleared by cardiology recommending close outpatient follow-up in the next 1 to 2 weeks. Patient reports to feeling well and would like to go home. Please refer to cardiology note for further HPI. Kidney functions improved and patient's blood pressures are normal recommend holding diuretics at this time with close outpatient follow-up with cardiology. Currently no reports of chest pain, shortness of breath, or palpitations. Patient is afebrile. No reports of nausea or vomiting and patient is tolerating diet. Patient will be discharged home today. Physical exam: Gen: This is a 58-year-old female who is awake, alert and oriented x 3, well- developed, appears older than stated age HEENT: Head is atraumatic, normocephalic. Pupils equal, round. Sclerae is anicteric. NECK: Supple. No JVD. No lymphadenopathy. No thyromegaly. LUNGS: Diminished breath sounds bilaterally otherwise clear to auscultation. No wheezes or rhonchi. No intercostal retractions. HEART: Regular rate and rhythm. No murmur. ABDOMEN: Soft. Bowel sounds are present. No masses. No tenderness. EXTREMITIES: No pedal edema. No calf tenderness. NEUROLOGICAL: Patient is awake, alert and oriented x3. Cranial nerves 2 through 12 are grossly intact. Please refer to medication reconciliation sheet for a list of medications. The impression and plan of care has been dictated by Elissa Medrano, Nurse Practitioner as directed. Dr. Andrzej MD I have performed a history and examination and MDM of this patient, discussed the same with the dictator, and agree with the dictator's assessment and plan as written ,documented as a scribe. Based on total visit time, I have performed more than 50% of the visit. Patient Condition at Discharge: Stable Plan - Discharge Summary Discharge Rx Participant: No New Discharge Prescriptions: New Prasugrel [Effient] 10 mg PO DAILY #30 tab Metoprolol Tartrate [Lopressor] 12.5 mg PO BID #60 tab Atorvastatin [Lipitor] 80 mg PO HS #30 tab Continue Ketoconazole 2% Cream [Nizoral 2%] 1 applic TOPICAL DAILY Aspirin 81 mg PO DAILY #60 tab Nitroglycerin Sl Tabs [Nitrostat] 0.4 mg SUBLINGUAL Q5M PRN #20 tab PRN Reason: Chest Pain Nicotine 21Mg/24Hr Patch [Habitrol] 1 patch TRANSDERM DAILY allopurinoL [Zyloprim] 300 mg PO DAILY hydrOXYzine pamoate [Vistaril] 50 mg PO TID Pregabalin [Lyrica] 50 mg PO TID Fluticasone Nasal [place] [Flonase Nasal [place]] 1 spray EA NOSTRIL DAILY Omeprazole 20 mg PO DAILY Naproxen [EC-Naprosyn] 500 mg PO BID Semaglutide [Ozempic] 0.5 mg SQ TH Discontinued Propranolol [Inderal] 20 mg PO TID PRN PRN Reason: Anxiety Atorvastatin [Lipitor] 20 mg PO HS Clopidogrel [Plavix] 75 mg PO DAILY Metoprolol Succinate [Metoprolol Succinate ER] 25 mg PO DAILY Lisinopril-Hctz 20-25 mg [Zestoretic 20-25] 1 tab PO DAILY Discharge Medication List Fluticasone Nasal [place] [Flonase Nasal [place]] 1 spray EA NOSTRIL DAILY 09/25/23 [History] Ketoconazole 2% Cream [Nizoral 2%] 1 applic TOPICAL DAILY 09/25/23 [History] Omeprazole 20 mg PO DAILY 09/25/23 [History] Pregabalin [Lyrica] 50 mg PO TID 09/25/23 [History] allopurinoL [Zyloprim] 300 mg PO DAILY 09/25/23 [History] hydrOXYzine pamoate [Vistaril] 50 mg PO TID 09/25/23 [History] Aspirin 81 mg PO DAILY #60 tab 09/27/23 [Rx] Nitroglycerin Sl Tabs [Nitrostat] 0.4 mg SUBLINGUAL Q5M PRN #20 tab 09/27/23 [Rx] Naproxen [EC-Naprosyn] 500 mg PO BID 06/26/24 [History] Nicotine 21Mg/24Hr Patch [Habitrol] 1 patch TRANSDERM DAILY 06/26/24 [History] Semaglutide [Ozempic] 0.5 mg SQ TH 06/26/24 [History] Atorvastatin [Lipitor] 80 mg PO HS #30 tab 06/29/24 [Rx] Metoprolol Tartrate [Lopressor] 12.5 mg PO BID #60 tab 06/29/24 [Rx] Prasugrel [Effient] 10 mg PO DAILY #30 tab 06/29/24 [Rx] Follow up Appointment(s)/Referral(s): Shoshana Hicks MD [Primary Care Provider] - 1-2 days Juan Osborne MD [STAFF PHYSICIAN] - 07/05/24 4:15 pm (Appointment made at the main office ) Patient Instructions/Handouts: Chest Pain (DC), How to Stop Smoking (DC), Heart Catheterization (DC) Activity/Diet/Wound Care/Special Instructions: Activity limited until follow-up Follow-up with primary care provider on discharge Follow-up with cardiology outpatient Continue taking medications as prescribed Discharge Disposition: HOME SELF-CARE
== END 2024-06-29 11:31 | disposition home or self-care (01) ==
LOC: EC 19:04 → 3SCARD 20:03 → 6NMEDSUR 06-27 07:14
PROVIDERS: ADMIT Hospitalist; ATTEND Hospitalist
DX: R07.9 Chest pain, unspecified (principal); R11.0 Nausea; R06.02 Shortness of breath; R61 Generalized hyperhidrosis; I25.10 Atherosclerotic heart disease of native coronary artery without angina pectoris; N17.9 Acute kidney failure, unspecified; J44.9 Chronic obstructive pulmonary disease, unspecified; F32.A Depression, unspecified; F41.9 Anxiety disorder, unspecified; I10 Essential (primary) hypertension; E78.5 Hyperlipidemia, unspecified; I25.2 Old myocardial infarction; F17.210 Nicotine dependence, cigarettes, uncomplicated; Z95.5 Presence of coronary angioplasty implant and graft; Z79.02 Long term (current) use of antithrombotics/antiplatelets; Z79.51 Long term (current) use of inhaled steroids; Z79.82 Long term (current) use of aspirin; Z79.899 Other long term (current) drug therapy; Z88.5 Allergy status to narcotic agent
CPT/HCPCS: 92978 ×2; 93458 ×2; 96376 ×3; 96366 ×3; 96365; 96374; 99285; 36415; 93005 ×2; 93799; 80061; 80053 ×2; 80048; 83735; 84484 ×2; 85025 ×2; 85610 ×2; 85730 ×3; G0378 ×5; C9600; C1769 ×3; C1894; C1887 ×2; C1753; C1874; C1725 ×2; S4990 ×3; J2250; J1644 ×5; J2003; J3010; J2270 ×2; Q9966; J2305